=== PATIENT | female | born 1975 | race Caucasian/White ===

== ENCOUNTER 2020-07-11 13:45 | Emergency (ER) | payer MEDICARE ==
[2020-07-11] MEDS ORDERED: Sodium Chloride 0.9% 1000 ML 1,000 ML IV STA ×2 (14:29→15:34)
[2020-07-11] MEDS ORDERED: Zofran 4 MG/2 ML VIAL IV ONE (14:34)
[2020-07-11] MEDS ORDERED: MORPHINE SULFATE 4 MG INJ IV ONE (14:34)
--- NOTE | 2020-07-11 14:34 | ERPHSYRPT ---
- History of Present Illness Historian: patient Exam Limitations: no limitations Patient Subjective Stated Complaint: Pt states that she has arthritis in her knees and back and they are hurting, she is having severe pain in her sides and abdomen, she has felt like she was going to have diarhea 4 different times today but couldn't go, she has been nauseaous today and finally vomited on her way to the hospital Triage Nursing Assessment: Pt was brought to the ER by her dad, vitals wnl, pt moaning, pulses normal, bowel sounds heard in all 4, skin n/w/d, smokes 1 pk/day, rates overall pain as 8/10 Timing/Duration: day(s) (4) Activities at Onset: rest Quality: sharpness, throbbing Abdominal Pain Onset Location: LLQ Pain Radiation: no radiation Severity of Pain-Max: severe Severity of Pain-Current: severe Modifying Factors: Improves With: movement Associated Symptoms: back, diarrhea, nausea Previous symptoms: no prior history Allergies/Adverse Reactions: carbamazepine [From Tegretol] Allergy (Verified 07/11/20 14:10) phenytoin [From Dilantin] Allergy (Verified 07/11/20 14:10) Home Medications: Divalproex Sodium 1,000 mg PO BID 07/11/20 [History] Sertraline HCl 50 mg PO DAILY 07/11/20 [History] Topiramate [Topamax] 200 mg PO BID 07/11/20 [History] Travel Risk - International Travel Have you traveled outside of the country in past 3 weeks: No - Coronavirus Screening Are you exhibiting any of the following symptoms?: No Close contact with a COVID-19 positive Pt in past 14-21 Days: No - Review of Systems Constitutional: Malaise, No Fever, No Chills Eyes: No Symptoms Ears, Nose, & Throat: No Symptoms Respiratory: No Cough, No Dyspnea Cardiac: No Chest Pain, No Edema, No Syncope Abdominal/Gastrointestinal: Abdominal Pain, Nausea, Vomiting, Diarrhea Genitourinary Symptoms: No Dysuria Musculoskeletal: Arthralgias, Back Pain, Joint Pain, No Neck Pain Skin: No Symptoms, No Rash Neurological: No Dizziness, No Focal Weakness, No Sensory Changes Psychological: No Symptoms Endocrine: No Symptoms All Other Systems: Reviewed and Negative - Past Medical History Neurological History: Seizures Psycho-Social History: Depression - Past Surgical History Past Surgical History: Yes Female Surgical History: Section, Tubal Ligation - Social History Smoking Status: Current every day smoker Exposure to second hand smoke: Yes Drug Use: none Patient Lives Alone: No - Female History Hx Now: No (tubal) - Nursing Vital Signs Nursing Vital Signs: Initial Vital Signs Temperature 97.4 F 07/11/20 13:54 Pulse Rate 102 H 07/11/20 13:54 Blood Pressure 134/88 07/11/20 13:54 O2 Sat by Pulse Oximetry 98 07/11/20 13:54 Pain Scale Pain Intensity 8 - Physical Exam General Appearance: moderate distress, alert, obese Eye Exam: PERRL/EOMI, eyes nml inspection Ears, Nose, Throat Exam: normal ENT inspection, pharynx normal, moist mucous membranes Neck Exam: normal inspection, non-tender, supple, full range of motion Respiratory Exam: normal breath sounds, lungs clear, No respiratory distress Cardiovascular Exam: normal heart sounds, tachycardia Gastrointestinal/Abdomen Exam: soft, tenderness (Diffuse), No mass Pelvic Exam: deferred Back Exam: vertebral tenderness, decreased range of motion, muscle spasm, No CVA tenderness Extremity Exam: normal inspection, normal range of motion, pelvis stable Neurologic Exam: alert, oriented x 3, cooperative, nml cerebellar function, sensation nml, depressed mood/affect, No motor deficits Skin Exam: normal color, warm, dry SpO2: 98 - Course Nursing assessment & vital signs reviewed: Yes EKG Interpreted by Me: RATE ([id number]), Sinus Tach Ordered Tests: Active Orders 24 hr Category Date Time Status EKG-ER Only STAT Care 07/11/20 14:29 Active IV Insertion STAT Care 07/11/20 14:29 Active ABDOMEN AND PELVIS W/0 CONTRAS [CT] Stat Exams 07/11/20 15:08 Completed BMP Stat Lab 07/11/20 14:45 Completed CBC W DIFF Stat Lab 07/11/20 14:29 Completed Hepatic Function Panel Stat Lab 07/11/20 14:45 Completed LIPASE Stat Lab 07/11/20 14:45 Completed PROTIME WITH INR Stat Lab 07/11/20 14:45 Completed UA W/RFX UR CULTURE Stat Lab 07/11/20 13:59 Uncollected Medication Summary Generic Name Dose Route Start Last Admin Trade Name Freq PRN Reason Stop Dose Admin Sodium Chloride 1,000 mls @ 999 mls/hr 07/11/20 15:34 Sodium Chloride 0.9% 1000 Ml IV 07/11/20 16:34 .Q1H1M STA Tamsulosin HCl 0.4 mg 07/12/20 10:00 Flomax 0.4 Mg PO 08/11/20 09:59 DAILY PB Discontinued Medications Generic Name Dose Route Start Last Admin Trade Name Panchito PRN Reason Stop Dose Admin Sodium Chloride 1,000 mls @ 999 mls/hr 07/11/20 14:29 07/11/20 14:36 Sodium Chloride 0.9% 1000 Ml IV 07/11/20 15:29 999 mls/hr .Q1H1M STA Administration Sodium Chloride Confirm 07/11/20 14:36 Sodium Chloride 0.9% 1000 Ml Administered 07/11/20 14:37 Dose 1,000 mls @ ud .ROUTE .STK-MED ONE Ketorolac Tromethamine 30 mg 07/11/20 15:33 Toradol 30 Mg Injection IV 07/11/20 15:34 STAT ONE Morphine Sulfate 4 mg 07/11/20 14:34 07/11/20 14:37 Morphine Sulfate 4 Mg Inj IV 07/11/20 14:35 4 mg STAT ONE Administration Morphine Sulfate Confirm 07/11/20 14:35 Morphine Sulfate 4 Mg Inj Administered 07/11/20 14:36 Dose 4 mg .ROUTE .STK-MED ONE Ondansetron HCl 4 mg 07/11/20 14:34 07/11/20 14:37 Zofran 4 Mg/2 Ml Vial IV 07/11/20 14:35 4 mg STAT ONE Administration Ondansetron HCl Confirm 07/11/20 14:35 Zofran 4 Mg/2 Ml Vial Administered 07/11/20 14:36 Dose 4 mg .ROUTE .STK-MED ONE Lab/Rad Data: Laboratory Result Diagrams 07/11/20 14:29 07/11/20 14:45 Laboratory Results 07/11/20 07/11/20 07/11/20 Range/Units 14:45 14:45 14:29 WBC 4.5 (4.0-10.5) K/mm3 RBC 4.23 (4.1-5.4) M/mm3 Hgb 14.2 (12.0-16.0) gm/dl Hct 43.6 (35-47) % MCV 103.1 H (78-100) fl MCH 33.6 H (26-32) pg MCHC 32.6 (32-36) g/dl RDW 13.0 (11.5-14.0) % Plt Count 127 L (150-450) K/mm3 MPV 10.8 (7.5-11.0) fl Gran % 89.2 H (36.0-66.0) % Eos # (Auto) 0.03 (0-0.5) Absolute Lymphs (auto) 0.39 L (1.0-4.6) Absolute Monos (auto) 0.06 (0.0-1.3) Lymphocytes % 8.6 L (24.0-44.0) % Monocytes % 1.3 (0.0-12.0) % Eosinophils % 0.7 (0.00-5.0) % Basophils % 0.2 (0.0-0.4) % Absolute Granulocytes 4.02 (1.4-6.9) Basophils # 0.01 (0-0.4) PT 11.8 (9.95-12.35) SECONDS INR 1.04 (0.8-3.0) Sodium 137 (137-145) mmol/L Potassium 4.5 (3.5-5.1) mmol/L Chloride 109 H (98-107) mmol/L Carbon Dioxide 22 (22-30) mmol/L Anion Gap 11.0 (5-15) MEQ/L BUN 16 (7-17) mg/dL Creatinine 0.83 (0.52-1.04) mg/dL Estimated GFR > 60.0 ML/MIN Glucose 113 H (74-106) mg/dL Calcium 9.2 (8.4-10.2) mg/dL Total Bilirubin 0.30 (0.2-1.3) mg/dL Direct Bilirubin 0.1 (0.0-0.4) mg/dL AST 27 (14-36) U/L ALT 10 (0-35) U/L Alkaline Phosphatase 62 (38-126) U/L Serum Total Protein 7.3 (6.3-8.2) g/dL Albumin 3.7 (3.5-5.0) g/dL Lipase 62 (23-300) U/L - Progress Progress: improved Progress Note: 07/11/20 15:49 abd pain work up. Labs fairly unremarkable. CT shows 5-6mm ureteral stone about 3cm proximal to UVJ. Toradol, IVF, flomax. Transfer center connected me to ER MD for ER to ER transfer. Pt accepted for transfer to ER by Dr. Naranjo. Counseled pt/family regarding: lab results, diagnosis, rad results - Departure Departure Disposition: Transfer Clinical Impression: Ureteral stone with hydronephrosis Condition: Stable Critical Care Time: No Referrals: RODGER VALLADARES [Primary Care Provider] -
[2020-07-11] MEDS ORDERED: MORPHINE SULFATE 4 MG INJ ONE (14:35)
[2020-07-11] MEDS ORDERED: Zofran 4 MG/2 ML VIAL ONE (14:35)
[2020-07-11] MEDS ORDERED: Sodium Chloride 0.9% 1000 ML 1,000 ML ONE ×2 (14:36→15:48)
[2020-07-11 14:54] LABS: Absolute Neutrophil Ct (ANC) 4.02 (1.4-6.9); BASOPHIL % 0.2 % (0.0-0.4); Basophil (Absolute #) 0.01 (0-0.4); Eosinophil % 0.7 % (0.00-5.0); Eosinophil (Absolute #) 0.03 (0-0.5); Hematocrit 43.6 % (35-47); Hemoglobin 14.2 gm/dl (12.0-16.0); Lymphocyte (Absolute #) 0.39 (1.0-4.6); Lymphocytes % 8.6 % (24.0-44.0); Mean Cell Volume 103.1 fl (78-100); Mean Corpuscular Hemoglobin 33.6 pg (26-32); Mean Corpuscular Hgb Concent. 32.6 g/dl (32-36); Mean Platelet Volume 10.8 fl (7.5-11.0); Monocyte (Absolute #) 0.06 (0.0-1.3); Monocytes % 1.3 % (0.0-12.0); Neutrophil % 89.2 % (36.0-66.0); Platelet Count 127 K/mm3 (150-450); Red Blood Count 4.23 M/mm3 (4.1-5.4); White Blood Count 4.5 K/mm3 (4.0-10.5)
[2020-07-11 15:02] LABS: INR 1.04 (0.8-3.0); PROTIME 11.8 SECONDS (9.95-12.35)
[2020-07-11 15:06] LABS: ALBUMIN 3.7 g/dL (3.5-5.0); ALKALINE PHOSPHATASE 62 U/L (38-126); BLOOD UREA NITROGEN 16 mg/dL (7-17); CHLORIDE 109 mmol/L (98-107); Calcium 9.2 mg/dL (8.4-10.2); Carbon Dioxide 22 mmol/L (22-30); Creatinine 1 0.83 mg/dL (0.52-1.04); Direct Bilirubin 0.1 mg/dL (0.0-0.4); EST GLOMERULAR FILTRATION RATE > 60.0 ML/MIN; Glucose 113 mg/dL (74-106); LIPASE 62 U/L (23-300); Potassium 4.5 mmol/L (3.5-5.1); SGOT/AST 27 U/L (14-36); SGPT/ALT 10 U/L (0-35); SODIUM 137 mmol/L (137-145); Total Protein 7.3 g/dL (6.3-8.2)
[2020-07-11 15:15] VITALS: PULSE 104
--- NOTE | 2020-07-11 15:27 | XRAY ---
Indication: Abdomen pain, nausea, and diarrhea. Multiple contiguous axial images obtained through the abdomen and pelvis without contrast as ordered. Comparison: None Lung bases demonstrates 1 cm posterior right lower lobe noncalcified nodule. No infiltrate or effusion. Heart is not enlarged. Small hiatal hernia. Noncontrasted stomach and bowel loops appear nonobstructed. Normal air-filled appendix. Previous cholecystectomy. Spleen is enlarged measuring 12.6 cm. There is a 5-6 mm distal left ureter calculus approximately 3 cm proximal to the UVJ. Proximal left ureter is prominent up to 9 mm along with moderate hydronephrosis, renal edema, and perinephric stranding consistent with high-grade obstructive uropathy. Additional multiple bilateral renal punctate calculi, largest right lower pole measuring 3 mm. Remaining liver, pancreas, spleen, adrenal glands, urinary bladder, uterus, and aorta appear unremarkable for noncontrast exam. Osseous structures intact with mild/moderate L4-S1 degenerative disc disease and old right 11/12 rib fractures. Impression: 1. 5-6 mm distal left ureter calculus producing high-grade obstruction as detailed. Additional bilateral renal micro-calculi. 2. Incidental splenomegaly and small hiatal hernia. 3. 1 cm right lower lobe noncalcified pulmonary nodule. Finding is possibly granulomatous in this demographic. Outside comparison studies are recommended if available. If not, CT chest recommended for baseline with follow-up per Fleischner guidelines.
[2020-07-11] MEDS ORDERED: TORAdol 30 mg Injection IV ONE (15:33)
[2020-07-11] MEDS ORDERED: TORAdol 30 mg Injection ONE (15:48)
[2020-07-11] MEDS ORDERED: Flomax 0.4 MG ONE (15:48)
[2020-07-11 16:10] VITALS: BP 94/58; O2SAT 93
[2020-07-12] MEDS ORDERED: Flomax 0.4 MG PO SCH (10:00)
== END 2020-07-11 16:43 | disposition short-term general hospital (02) ==
LOC: ED 13:45
DX: N13.2 Hydronephrosis with renal and ureteral calculous obstruction (principal)
CPT/HCPCS: 36000; 36415; 74176; 80048; 80076; 83690; 85025; 85610; 93005; 96360; 96374; 96375; 99285; J1885; J2270; J2405; A9270-GY

== ENCOUNTER 2021-10-11 19:35 | Emergency (ER) | payer MEDICARE ==
[2021-10-11] MEDS ORDERED: Zofran 4 MG/2 ML VIAL ONE (20:13)
[2021-10-11] MEDS ORDERED: MORPHINE SULFATE 4 MG INJ ONE (20:13)
[2021-10-11] MEDS ORDERED: Sodium Chloride 0.9% 1000 ML 1,000 ML ONE (20:13)
[2021-10-11] MEDS: Sodium Chloride 0.9% 1000 ML 1,000 ML IV STA (20:14)
[2021-10-11] MEDS: MORPHINE SULFATE 4 MG INJ IV ONE (20:15)
[2021-10-11] MEDS: Zofran 4 MG/2 ML VIAL IV ONE (20:15)
[2021-10-11 20:26] LABS: Absolute Neutrophil Ct (ANC) 4.02 (1.4-6.9); BASOPHIL % 0.2 % (0.0-0.4); Basophil (Absolute #) 0.01 (0-0.4); Eosinophil % 1.3 % (0.00-5.0); Eosinophil (Absolute #) 0.07 (0-0.5); Hematocrit 37.5 % (35-47); Hemoglobin 11.8 gm/dl (12.0-16.0); Lymphocyte (Absolute #) 1.02 (1.0-4.6); Lymphocytes % 18.3 % (24.0-44.0); Mean Corpuscular Hemoglobin 31.5 pg (26-32); Mean Corpuscular Hgb Concent. 31.5 g/dl (32-36); Mean Platelet Volume 10.7 fl (7.5-11.0); Monocyte (Absolute #) 0.46 (0.0-1.3); Monocytes % 8.2 % (0.0-12.0); Platelet Count 152 K/mm3 (150-450); Red Blood Count 3.75 M/mm3 (4.1-5.4); Red Cell Distribution Width 14.5 % (11.5-14.0); White Blood Count 5.6 K/mm3 (4.0-10.5)
[2021-10-11 20:37] LABS: Appearance CLOUDY (CLEAR); Bacteria MODERATE /HPF (NEGATIVE); Bilirubin NEGATIVE (NEGATIVE); Blood SMALL Ery/ul (0-5); Epithelial Cells RARE /HPF (FEW); Glucose NEGATIVE (NEGATIVE); Ketones TRACE (NEGATIVE); Leukocyte Esterase LARGE (NEGATIVE); Nitrite POSITIVE (NEGATIVE); Protein,Urine Dip 100 (Negative); Specific Gravity 1.018 (1.005-1.025); Urobilinogen NEGATIVE mg/dL (0-1); WBC >100 /HPF (0-5)
[2021-10-11 20:40] LABS: ALBUMIN 3.5 g/dL (3.5-5.0); ALKALINE PHOSPHATASE 71 U/L (38-126); ANION GAP 10.5 MEQ/L (5-15); BLOOD UREA NITROGEN 13 mg/dL (7-17); CHLORIDE 106 mmol/L (98-107); Calcium 8.9 mg/dL (8.4-10.2); Carbon Dioxide 22 mmol/L (22-30); Creatinine 1 0.84 mg/dL (0.52-1.04); EST GLOMERULAR FILTRATION RATE > 60.0 ML/MIN; Glucose 127 mg/dL (74-106); LIPASE 66 U/L (23-300); Potassium 4.1 mmol/L (3.5-5.1); SGOT/AST 13 U/L (14-36); SGPT/ALT 8 U/L (0-35); SODIUM 134 mmol/L (137-145); Total Protein 6.7 g/dL (6.3-8.2)
--- NOTE | 2021-10-11 21:00 | ERPHSYRPT ---
- History of Present Illness Time Seen by Provider: 10/11/21 20:00 Historian: patient Exam Limitations: no limitations Patient Subjective Stated Complaint: pt states "I was laying on the couch and my stomach began to hurt." Triage Nursing Assessment: pt came into the er via ambulance; pt is axo x3; c/o abd pain; pt states 9/10 to abd; pt states last BM today; abd is obese, round, nontender; hyperactive bowel sounds in all quads; pt denies N/V/D; urine yellow, cloudy, foul ordor; hypertension Physician History: Patient is a 46-year-old female presents to our ED via EMS for evaluation of abdominal pain. Patient states pain started just prior to arrival. Patient was laying on the couch relaxing when the pain started. Pain described as an ache that is located at bilateral flanks and into the midline area. No radiation per se. Pain reproduced with movement and palpation. Pain improved with rest. Patient currently rates her pain at 9 out of 10. Patient denies nausea vomiting. Patient had a normal bowel movement today. No diarrhea. However patient does state that her urine appears cloudy. Patient states her urine has a foul smell. Symptoms are mild to moderate in intensity. No specific worsening improving factors. Patient voices no other complaints concerns at this time. Timing/Duration: today Activities at Onset: none Quality: aching Abdominal Pain Onset Location: generalized abdomen Pain Radiation: no radiation Severity of Pain-Max: moderate Severity of Pain-Current: mild Modifying Factors: Improves With: nothing Associated Symptoms: denies symptoms Previous symptoms: no prior history Allergies/Adverse Reactions: carbamazepine [From Tegretol] Allergy (Verified 07/11/20 14:10) phenytoin [From Dilantin] Allergy (Verified 07/11/20 14:10) Home Medications: Divalproex Sodium 1,000 mg PO BID 07/11/20 [History] Sertraline HCl 50 mg PO DAILY 07/11/20 [History] Topiramate [Topamax] 200 mg PO BID 07/11/20 [History] Hx Tetanus, Diphtheria Vaccination/Date Given: No Hx Influenza Vaccination/Date Given: No Hx Pneumococcal Vaccination/Date Given: No Immunizations Up to Date: No Travel Risk - International Travel Have you traveled outside of the country in past 3 weeks: No - Coronavirus Screening Are you exhibiting any of the following symptoms?: No Close contact with a COVID-19 positive Pt in past 14-21 Days: No - Vaccine Status Have you recieved a Covid-19 vaccination: Yes [employer]: [employer] - Vaccination Dates Date of 2cond Vaccination (if applicable): unknown - Review of Systems Constitutional: No Symptoms, No Fever, No Chills Eyes: No Symptoms Ears, Nose, & Throat: No Symptoms Respiratory: No Symptoms, No Cough, No Dyspnea Cardiac: No Symptoms, No Chest Pain, No Edema, No Syncope Abdominal/Gastrointestinal: No Symptoms, No Abdominal Pain, No Nausea, No Vomiting, No Diarrhea Genitourinary Symptoms: No Symptoms, No Dysuria Musculoskeletal: No Symptoms, No Back Pain, No Neck Pain Skin: No Symptoms, No Rash Neurological: No Symptoms, No Dizziness, No Focal Weakness, No Sensory Changes Psychological: No Symptoms Endocrine: No Symptoms Hematologic/Lymphatic: No Symptoms Immunological/Allergic: No Symptoms All Other Systems: Reviewed and Negative - Past Medical History Pertinent Past Medical History: Yes Neurological History: Seizures Musculoskeletal History: Arthritis Psycho-Social History: Bipolar, Depression - Past Surgical History Past Surgical History: Yes Female Surgical History: Section, Tubal Ligation Other Surgical History: c-sections x3 - Social History Smoking Status: Current every day smoker Exposure to second hand smoke: Yes Drug Use: none Patient Lives Alone: No - Female History Hx Now: Yes - Nursing Vital Signs Nursing Vital Signs: Initial Vital Signs Temperature 97.5 F 10/11/21 19:45 Pulse Rate 86 10/11/21 19:45 Respiratory Rate 18 10/11/21 19:45 Blood Pressure 157/91 10/11/21 19:45 O2 Sat by Pulse Oximetry 96 10/11/21 19:45 Pain Scale Pain Intensity 3 - Physical Exam General Appearance: no apparent distress, alert Eye Exam: PERRL/EOMI, eyes nml inspection Ears, Nose, Throat Exam: normal ENT inspection, TMs normal, pharynx normal, moist mucous membranes Neck Exam: normal inspection, non-tender, supple, full range of motion Respiratory Exam: normal breath sounds, lungs clear, airway intact, No respiratory distress Cardiovascular Exam: regular rate/rhythm, normal heart sounds, normal peripheral pulses Gastrointestinal/Abdomen Exam: soft, normal bowel sounds, other (Mild generalized abdominal tenderness. Pain is undifferentiated), No tenderness, No mass Back Exam: normal inspection, normal range of motion, No CVA tenderness, No vertebral tenderness Extremity Exam: normal inspection, normal range of motion, pelvis stable Neurologic Exam: alert, oriented x 3, cooperative, normal mood/affect, nml cerebellar function, sensation nml, No motor deficits Skin Exam: normal color, warm, dry Lymphatic Exam: No adenopathy SpO2 Interpretation: normal SpO2: 96 O2 Delivery: Room Air - Course Nursing assessment & vital signs reviewed: Yes - CT Exams Abdomen/Pelvis CT Interpretation: Tele-radiologist Report (07/11/2020 new 2 to 3 mm left UPJ calculus producing mild hydronephrosis. Again additional bilateral renal microcalculi.) Ordered Tests: Active Orders 24 hr Category Date Time Status IV Insertion STAT Care 10/11/21 19:47 Active ABDOMEN AND PELVIS W CONTRAST [CT] Stat Exams 10/11/21 19:48 Taken CBC W DIFF Stat Lab 10/11/21 20:15 Completed CMP Stat Lab 10/11/21 20:15 Completed CULTURE,URINE Stat Lab 10/11/21 19:55 Received HCG,QUALITATIVE URINE Stat Lab 10/11/21 19:55 Completed LIPASE Stat Lab 10/11/21 20:15 Completed TROPONIN Q3H Lab 10/11/21 20:15 Completed TROPONIN Q3H Lab 10/11/21 23:00 Ordered TROPONIN Q3H Lab 10/12/21 02:00 Ordered TROPONIN Q3H Lab 10/12/21 05:00 Ordered TROPONIN Q3H Lab 10/12/21 08:00 Ordered UA W/RFX UR CULTURE Stat Lab 10/11/21 19:55 Completed Medication Summary Generic Name Dose Route Start Last Admin Trade Name Freq PRN Reason Stop Dose Admin Ceftriaxone Sodium/Dextrose 1 g in 50 mls @ 100 mls/hr 10/11/21 22:21 Rocephin 1 Gm-D5w 50 Ml Bag IV 10/11/21 22:50 STAT STA Discontinued Medications Generic Name Dose Route Start Last Admin Trade Name Freq PRN Reason Stop Dose Admin Sodium Chloride 1,000 mls @ 999 mls/hr 10/11/21 19:47 10/11/21 21:31 Sodium Chloride 0.9% 1000 Ml IV 10/11/21 20:47 Infused .Q1H1M STA Infusion Sodium Chloride Confirm 10/11/21 20:13 Sodium Chloride 0.9% 1000 Ml Administered 10/11/21 20:14 Dose 1,000 mls @ ud .ROUTE .STK-MED ONE Morphine Sulfate 4 mg 10/11/21 19:47 10/11/21 20:15 Morphine Sulfate 4 Mg/Ml Injection IV 10/11/21 19:48 4 mg STAT ONE Administration Morphine Sulfate Confirm 10/11/21 20:13 Morphine Sulfate 4 Mg/Ml Injection Administered 10/11/21 20:14 Dose 4 mg .ROUTE .STK-MED ONE Ondansetron HCl 4 mg 10/11/21 19:47 10/11/21 20:15 Ondansetron Hcl 4 Mg/2 Ml Vial IV 10/11/21 19:48 4 mg STAT ONE Administration Ondansetron HCl Confirm 10/11/21 20:13 Ondansetron Hcl 4 Mg/2 Ml Vial Administered 10/11/21 20:14 Dose 4 mg .ROUTE .STK-MED ONE Lab/Rad Data: Laboratory Result Diagrams 10/11/21 20:15 10/11/21 20:15 Laboratory Results 10/11/21 10/11/21 10/11/21 Range/Units 20:15 20:15 20:15 WBC 5.6 (4.0-10.5) K/mm3 RBC 3.75 L (4.1-5.4) M/mm3 Hgb 11.8 L (12.0-16.0) gm/dl Hct 37.5 (35-47) % MCV 100.0 (78-100) fl MCH 31.5 (26-32) pg MCHC 31.5 L (32-36) g/dl RDW 14.5 H (11.5-14.0) % Plt Count 152 (150-450) K/mm3 MPV 10.7 (7.5-11.0) fl Gran % 72.0 H (36.0-66.0) % Eos # (Auto) 0.07 (0-0.5) Absolute Lymphs (auto) 1.02 (1.0-4.6) Absolute Monos (auto) 0.46 (0.0-1.3) Lymphocytes % 18.3 L (24.0-44.0) % Monocytes % 8.2 (0.0-12.0) % Eosinophils % 1.3 (0.00-5.0) % Basophils % 0.2 (0.0-0.4) % Absolute Granulocytes 4.02 (1.4-6.9) Basophils # 0.01 (0-0.4) Sodium 134 L (137-145) mmol/L Potassium 4.1 (3.5-5.1) mmol/L Chloride 106 (98-107) mmol/L Carbon Dioxide 22 (22-30) mmol/L Anion Gap 10.5 (5-15) MEQ/L BUN 13 (7-17) mg/dL Creatinine 0.84 (0.52-1.04) mg/dL Estimated GFR > 60.0 ML/MIN Glucose 127 H (74-106) mg/dL Calcium 8.9 (8.4-10.2) mg/dL Total Bilirubin 0.20 (0.2-1.3) mg/dL AST 13 L (14-36) U/L ALT 8 (0-35) U/L Alkaline Phosphatase 71 (38-126) U/L Troponin I < 0.012 (0.000-0.034) ng/mL Serum Total Protein 6.7 (6.3-8.2) g/dL Albumin 3.5 (3.5-5.0) g/dL Lipase 66 (23-300) U/L Urine Color (YELLOW) Urine Appearance (CLEAR) Urine pH (5-6) Ur Specific [place] (1.005-1.025) Urine Protein (Negative) Urine Ketones (NEGATIVE) Urine Blood (0-5) David/ul Urine Nitrite (NEGATIVE) Urine Bilirubin (NEGATIVE) Urine Urobilinogen (0-1) mg/dL Ur Leukocyte Esterase (NEGATIVE) Urine WBC (Auto) (0-5) /HPF Urine RBC (Auto) (0-2) /HPF U Epithel Cells (Auto) (FEW) /HPF Urine Bacteria (Auto) (NEGATIVE) /HPF Urine Culture Reflexed (NO) Urine Glucose (NEGATIVE) mg/dL Urine HCG, Qual (Negative) 10/11/21 10/11/21 Range/Units 19:55 19:55 WBC (4.0-10.5) K/mm3 RBC (4.1-5.4) M/mm3 Hgb (12.0-16.0) gm/dl Hct (35-47) % MCV (78-100) fl MCH (26-32) pg MCHC (32-36) g/dl RDW (11.5-14.0) % Plt Count (150-450) K/mm3 MPV (7.5-11.0) fl Gran % (36.0-66.0) % Eos # (Auto) (0-0.5) Absolute Lymphs (auto) (1.0-4.6) Absolute Monos (auto) (0.0-1.3) Lymphocytes % (24.0-44.0) % Monocytes % (0.0-12.0) % Eosinophils % (0.00-5.0) % Basophils % (0.0-0.4) % Absolute Granulocytes (1.4-6.9) Basophils # (0-0.4) Sodium (137-145) mmol/L Potassium (3.5-5.1) mmol/L Chloride (98-107) mmol/L Carbon Dioxide (22-30) mmol/L Anion Gap (5-15) MEQ/L BUN (7-17) mg/dL Creatinine (0.52-1.04) mg/dL Estimated GFR ML/MIN Glucose (74-106) mg/dL Calcium (8.4-10.2) mg/dL Total Bilirubin (0.2-1.3) mg/dL AST (14-36) U/L ALT (0-35) U/L Alkaline Phosphatase (38-126) U/L Troponin I (0.000-0.034) ng/mL Serum Total Protein (6.3-8.2) g/dL Albumin (3.5-5.0) g/dL Lipase (23-300) U/L Urine Color IESHA (YELLOW) Urine Appearance CLOUDY (CLEAR) Urine pH 6.0 (5-6) Ur Specific [place] 1.018 (1.005-1.025) Urine Protein 100 (Negative) Urine Ketones TRACE (NEGATIVE) Urine Blood SMALL (0-5) David/ul Urine Nitrite POSITIVE (NEGATIVE) Urine Bilirubin NEGATIVE (NEGATIVE) Urine Urobilinogen NEGATIVE (0-1) mg/dL Ur Leukocyte Esterase LARGE (NEGATIVE) Urine WBC (Auto) >100 (0-5) /HPF Urine RBC (Auto) 16-25 (0-2) /HPF U Epithel Cells (Auto) RARE (FEW) /HPF Urine Bacteria (Auto) MODERATE (NEGATIVE) /HPF Urine Culture Reflexed YES (NO) Urine Glucose NEGATIVE (NEGATIVE) mg/dL Urine HCG, Qual NEGATIVE (Negative) - Progress Progress: improved Progress Note: Case discussed with Dr. Camarena of urology who feels patient may be discharged home. Patient will receive a dose of Rocephin in our ED. A prescription for Keflex will be provided. Patient agrees to follow-up with Dr. Camarena within 48 hours for evaluation. Patient states her pain has resolved. BUN/creatinine are normal. 10/11/21 22:28 Portions of this note were created with voice recognition technology. There may be grammatical, spelling, punctuation or sound alike errors 10/11/21 22:35 Patient received a prescription for Toradol, Keflex. Prescription for Flomax was forwarded to patient's pharmacy. 10/11/21 22:[address] Other (Case discussed with Dr. Camarena of urology who will see patient on an outpatient basis within 1 week's time.) Will see patient in: office Counseled pt/family regarding: lab results, diagnosis, need for follow-up, rad results - Departure Departure Disposition: Home Clinical Impression: Nephrolithiasis, Hydronephrosis, Ureterolithiasis, Renal colic on left side, Urinary tract infection Condition: Stable Critical Care Time: No Referrals: RODGER VALLADARES [Primary Care Provider] - Follow up/PCP as directed HIRO CAMARENA DO [NON-STAFF PHY W/O PRIVILEGES] - Follow up/PCP as directed Additional Instructions: Discharge/Care Plan MARLINRUFUS ABDI was seen on 10/11/21 in the Emergency Room. The patient was counseled regarding Diagnosis,Lab results, Imaging studies, need for follow up and when to return to the Emergency Room. Prescriptions given: Discharge Note I have spoken with the patient and/or caregivers. I have explained the patient's condition, diagnosis and treatment plan based on the information available to me at this time. I have answered the patient's and/or caregiver's questions and addressed any concerns. The patient and/or caregivers have as good understanding of the patient's diagnosis, condition and treatment plan as can be expected at this point. The vital signs have been stable. The patient's condition is stable and appropriate for discharge from the emergency department. The patient will pursue further outpatient evaluation with the primary care ph ysician or other designated or consulting physician as outlined in the discharge instructions. The patient and/or caregivers are agreeable to this plan of care and follow-up instructions have been explained in detail. The patient and/or caregivers have received these instruction. The patient/and or caregivers are aware that any significant change in condition or worsening of symptoms should prompt an immediate return to this or the closest emergency department or call 911. Prescriptions: Tamsulosin HCl 0.4 mg [Flomax 0.4 MG] 0.4 mg PO DAILY 14 Days #14 cap
[2021-10-11] MEDS ORDERED: ROCEPHIN 1 Gm-D5w 50 ml Bag** 1 G/50 ML IVPB IV ONE (22:31)
[2021-10-11] MEDS: ROCEPHIN 1 Gm-D5w 50 ml Bag** 1 G/50 ML IVPB IV STA (22:33)
[2021-10-11 22:35] VITALS: BP 98/68; PULSE 66; O2SAT 96
--- NOTE | 2021-10-12 08:55 | XRAY ---
Indication: Abdomen pain. Multiple contiguous axial images obtained through the abdomen and pelvis using 80 cc Isovue 370 contrast. Comparison: July 11, 2020. Lung bases demonstrate stable 1 cm posterior right lower lobe noncalcified nodule favored to be benign given stability. New bibasilar dependent atelectasis. No infiltrate or effusion. Heart not enlarged. Noncontrasted stomach and bowel loops appear nonobstructed with normal appendix. Stable cholecystectomy clips. No free fluid/air. Again multiple bilateral renal micro-calculi. New 2-3 mm left UPJ calculus with mild hydronephrosis. Remaining liver, pancreas, spleen, adrenal glands, kidneys, ureters, bladder, uterus, and aorta appear unremarkable. No pathologic retroperitoneal lymphadenopathy. Osseous structures intact again with mild degenerative changes throughout the thoracolumbar spine and old right 11/12 rib fractures. Impression: 1. Again bilateral renal micro-calculi with new 2-3 mm left UPJ calculus producing obstructive uropathy as detailed. 2. Stable probable benign right lower lobe noncalcified nodule and chronic bony findings.
== END 2021-10-11 23:09 | disposition home or self-care (01) ==
LOC: ED 19:35
DX: N13.6 Pyonephrosis (principal); N39.0 Urinary tract infection, site not specified
CPT/HCPCS: 36000; 36415; 74177; 80053; 81001; 83690; 84484; 84703; 85025; 87086; 96360; 96374; 96375; 99284; J0696; J2270; J2405

== ENCOUNTER 2022-01-20 03:36 | Emergency (ER) | payer MEDICARE ==
[2022-01-20] MEDS ORDERED: Sodium Chloride 0.9% 1000 ML 1,000 ML IV STA (04:01)
[2022-01-20] MEDS ORDERED: Zofran 4 MG/2 ML VIAL IV ONE (04:01)
[2022-01-20] MEDS ORDERED: Zofran 4 MG/2 ML VIAL ONE (04:04)
[2022-01-20] MEDS ORDERED: TORAdol 30 mg Injection ONE (04:04)
[2022-01-20] MEDS ORDERED: Sodium Chloride 0.9% 1000 ML 1,000 ML ONE (04:05)
[2022-01-20] MEDS ORDERED: TORAdol 30 mg Injection IV ONE (04:06)
[2022-01-20] MEDS ORDERED: SUBLIMAZE 100 MCG/2 ML IV ONE (04:09)
--- NOTE | 2022-01-20 04:13 | ERPHSYRPT ---
- History of Present Illness Time Seen by Provider: 01/20/22 04:10 Historian: patient Exam Limitations: no limitations Patient Subjective Stated Complaint: Left sided flank/abdominal pain Triage Nursing Assessment: Patient brought into ED via EMS and transferred self to bed. Patient A+O X3. Patient's skin pink, warm and dry. Patient complains of left sided flank/abdominal pain constant sharp pain 10/10 that started 30 min prior to arrival. Patient denies N/V, but states she did have diarrhea a few days ago. Abdomen soft and round with BS X 4. abdomen soft and round with BS X 4. Physician History: Patient complains of left sided flank/abdominal pain constant sharp pain 10/10 that started 30 min prior to arrival. Patient denies N/V, but states she did have diarrhea a few days ago. Hx of renal stones in past. Sees DR Grady (urology) Timing/Duration: today Activities at Onset: none Quality: cramping Abdominal Pain Onset Location: LLQ, flank Pain Radiation: LLQ Severity of Pain-Max: severe Severity of Pain-Current: severe Modifying Factors: Improves With: nothing Associated Symptoms: denies symptoms Previous symptoms: same symptoms as today Body Map: 1 - pain 2 - radiation of pain Allergies/Adverse Reactions: carbamazepine [From Tegretol] Allergy (Verified 01/20/22 03:47) phenytoin [From Dilantin] Allergy (Verified 01/20/22 03:47) Home Medications: Divalproex Sodium 1,000 mg PO BID 07/11/20 [History] Sertraline HCl 50 mg PO DAILY 07/11/20 [History] Topiramate [Topamax] 200 mg PO BID 07/11/20 [History] Hx Tetanus, Diphtheria Vaccination/Date Given: No Hx Influenza Vaccination/Date Given: No Hx Pneumococcal Vaccination/Date Given: No Immunizations Up to Date: Yes Travel Risk - International Travel Have you traveled outside of the country in past 3 weeks: No - Coronavirus Screening Are you exhibiting any of the following symptoms?: No Close contact with a COVID-19 positive Pt in past 14-21 Days: No - Vaccine Status Have you recieved a Covid-19 vaccination: Yes [employer]ume Se[employer]: [employer] - Vaccination Dates Date of 2cond Vaccination (if applicable): unknown - Review of Systems Constitutional: No Fever, No Chills Eyes: No Symptoms Ears, Nose, & Throat: No Symptoms Respiratory: No Cough, No Dyspnea Cardiac: No Chest Pain, No Edema, No Syncope Abdominal/Gastrointestinal: Abdominal Pain, No Nausea, No Vomiting, No Diarrhea Genitourinary Symptoms: No Dysuria Musculoskeletal: No Back Pain, No Neck Pain Skin: No Rash Neurological: No Dizziness, No Focal Weakness, No Sensory Changes Psychological: No Symptoms Endocrine: No Symptoms All Other Systems: Reviewed and Negative - Past Medical History Pertinent Past Medical History: Yes Neurological History: Seizures Musculoskeletal History: Arthritis Psycho-Social History: Bipolar, Depression - Past Surgical History Past Surgical History: Yes Female Surgical History: Section, Tubal Ligation Other Surgical History: c-sections x3 - Social History Smoking Status: Current every day smoker How long have you smoked: years Exposure to second hand smoke: No Drug Use: none Patient Lives Alone: No - Female History Hx Last Menstrual Period: last month Hx Now: No - Nursing Vital Signs Nursing Vital Signs: Initial Vital Signs Temperature 97.3 F 01/20/22 03:47 Pulse Rate 84 01/20/22 03:47 Respiratory Rate 18 01/20/22 03:47 Blood Pressure 139/93 01/20/22 03:47 O2 Sat by Pulse Oximetry 96 01/20/22 03:47 Pain Scale Pain Intensity 0 - Physical Exam General Appearance: no apparent distress, alert Eye Exam: PERRL/EOMI, eyes nml inspection Ears, Nose, Throat Exam: normal ENT inspection, pharynx normal, moist mucous membranes Neck Exam: normal inspection, non-tender, supple, full range of motion Respiratory Exam: normal breath sounds, lungs clear, No respiratory distress Cardiovascular Exam: regular rate/rhythm, normal heart sounds Gastrointestinal/Abdomen Exam: soft, tenderness (LLQ), No mass Back Exam: normal inspection, normal range of motion, No CVA tenderness, No vertebral tenderness Extremity Exam: normal inspection, normal range of motion, pelvis stable Neurologic Exam: alert, oriented x 3, cooperative, normal mood/affect, nml cerebellar function, sensation nml, No motor deficits Skin Exam: normal color, warm, dry SpO2: 96 - Course Nursing assessment & vital signs reviewed: Yes - CT Exams Abdomen/Pelvis CT Interpretation: Tele-radiologist Report (left distal ureter stone 7x3 mm in size) Ordered Tests: Active Orders 24 hr Category Date Time Status ABDOMEN AND PELVIS W/0 CONTRAS [CT] Stat Exams 01/20/22 04:09 Taken AMYLASE Stat Lab 01/20/22 04:38 Completed CBC W DIFF Stat Lab 01/20/22 04:06 Completed CMP Stat Lab 01/20/22 04:38 Completed CULTURE,URINE Stat Lab 01/20/22 04:06 Received HCG,QUALITATIVE URINE Stat Lab 01/20/22 04:06 Completed LIPASE Stat Lab 01/20/22 04:38 Completed Lactic Acid Stat Lab 01/20/22 04:34 Completed Medication Summary Discontinued Medications Generic Name Dose Route Start Last Admin Trade Name Freq PRN Reason Stop Dose Admin Fentanyl Citrate 50 mcg 01/20/22 04:09 01/20/22 04:23 Fentanyl Citrate 100 Mcg/2 Ml* Vial IV 01/20/22 04:10 50 mcg STAT ONE Administration Fentanyl Citrate Confirm 01/20/22 04:15 Fentanyl Citrate 100 Mcg/2 Ml* Vial Administered 01/20/22 04:16 Dose 100 mcg .ROUTE .STK-MED ONE Sodium Chloride 1,000 mls @ 999 mls/hr 01/20/22 04:01 01/20/22 05:25 Sodium Chloride 0.9% 1000 Ml IV 01/20/22 05:01 Infused .Q1H1M STA Infusion Sodium Chloride Confirm 01/20/22 04:05 Sodium Chloride 0.9% 1000 Ml Administered 01/20/22 04:06 Dose 1,000 mls @ ud .ROUTE .STK-MED ONE Ketorolac Tromethamine 30 mg 01/20/22 04:06 01/20/22 04:07 Ketorolac Tromethamine 30 Mg/Ml Inj IV 01/20/22 04:07 30 mg STAT ONE Administration Ketorolac Tromethamine Confirm 01/20/22 04:04 Ketorolac Tromethamine 30 Mg/Ml Inj Administered 01/20/22 04:05 Dose 30 mg .ROUTE .STK-MED ONE Ondansetron HCl 4 mg 01/20/22 04:01 01/20/22 04:07 Ondansetron Hcl 4 Mg/2 Ml Vial IV 01/20/22 04:02 4 mg STAT ONE Administration Ondansetron HCl Confirm 01/20/22 04:04 Ondansetron Hcl 4 Mg/2 Ml Vial Administered 01/20/22 04:05 Dose 4 mg .ROUTE .STK-MED ONE Lab/Rad Data: Laboratory Result Diagrams 01/20/22 04:06 01/20/22 04:38 Laboratory Results 01/20/22 01/20/22 01/20/22 Range/Units 04:38 04:34 04:06 WBC (4.0-10.5) K/mm3 RBC (4.1-5.4) M/mm3 Hgb (12.0-16.0) gm/dl Hct (35-47) % MCV (78-100) fl MCH (26-32) pg MCHC (32-36) g/dl RDW (11.5-14.0) % Plt Count (150-450) K/mm3 MPV (7.5-11.0) fl Gran % (36.0-66.0) % Eos # (Auto) (0-0.5) Absolute Lymphs (auto) (1.0-4.6) Absolute Monos (auto) (0.0-1.3) Lymphocytes % (24.0-44.0) % Monocytes % (0.0-12.0) % Eosinophils % (0.00-5.0) % Basophils % (0.0-0.4) % Absolute Granulocytes (1.4-6.9) Basophils # (0-0.4) Sodium 137 (137-145) mmol/L Potassium 4.1 (3.5-5.1) mmol/L Chloride 110 H (98-107) mmol/L Carbon Dioxide 22 (22-30) mmol/L Anion Gap 9.9 (5-15) MEQ/L BUN 13 (7-17) mg/dL Creatinine 0.71 (0.52-1.04) mg/dL Estimated GFR > 60.0 ML/MIN Glucose 90 (74-106) mg/dL Lactic Acid 1.2 (0.4-2.0) Calcium 8.6 (8.4-10.2) mg/dL Total Bilirubin 0.30 (0.2-1.3) mg/dL AST 18 (14-36) U/L ALT 13 (0-35) U/L Alkaline Phosphatase 67 (38-126) U/L Serum Total Protein 6.5 (6.3-8.2) g/dL Albumin 3.4 L (3.5-5.0) g/dL Amylase 61 (30-110) U/L Lipase 48 (23-300) U/L Urinalys Dipstick Clnc Urine Color (YELLOW) Urine Appearance (CLEAR) Urine pH (5-6) Ur Specific [place] (1.005-1.025) POC Urine Protein Conf (Negative) Urine Ketones (NEGATIVE) Urine Nitrite (NEGATIVE) Urine Bilirubin (NEGATIVE) Urine Urobilinogen (0-1) mg/dL Urine Leukocytes (NEGATIVE) Urine WBC (Auto) (0-5) /HPF Urine RBC (Auto) (0-2) /HPF U Epithel Cells (Auto) (FEW) /HPF Urine Bacteria (Auto) (NEGATIVE) /HPF Urine RBC (0-5) David/ul Urine Glucose (NEGATIVE) mg/dL Urine HCG, Qual NEGATIVE (Negative) 01/20/22 01/20/22 Range/Units 04:06 04:06 WBC 5.8 (4.0-10.5) K/mm3 RBC 3.68 L (4.1-5.4) M/mm3 Hgb 12.5 (12.0-16.0) gm/dl Hct 38.2 (35-47) % MCV 103.8 H (78-100) fl MCH 34.0 H (26-32) pg MCHC 32.7 (32-36) g/dl RDW 14.7 H (11.5-14.0) % Plt Count 134 L (150-450) K/mm3 MPV 10.6 (7.5-11.0) fl Gran % 60.4 (36.0-66.0) % Eos # (Auto) 0.09 (0-0.5) Absolute Lymphs (auto) 1.62 (1.0-4.6) Absolute Monos (auto) 0.56 (0.0-1.3) Lymphocytes % 28.1 (24.0-44.0) % Monocytes % 9.7 (0.0-12.0) % Eosinophils % 1.6 (0.00-5.0) % Basophils % 0.2 (0.0-0.4) % Absolute Granulocytes 3.49 (1.4-6.9) Basophils # 0.01 (0-0.4) Sodium (137-145) mmol/L Potassium (3.5-5.1) mmol/L Chloride (98-107) mmol/L Carbon Dioxide (22-30) mmol/L Anion Gap (5-15) MEQ/L BUN (7-17) mg/dL Creatinine (0.52-1.04) mg/dL Estimated GFR ML/MIN Glucose (74-106) mg/dL Lactic Acid (0.4-2.0) Calcium (8.4-10.2) mg/dL Total Bilirubin (0.2-1.3) mg/dL AST (14-36) U/L ALT (0-35) U/L Alkaline Phosphatase (38-126) U/L Serum Total Protein (6.3-8.2) g/dL Albumin (3.5-5.0) g/dL Amylase (30-110) U/L Lipase (23-300) U/L Urinalys Dipstick Clnc MAIN LAB Urine Color YELLOW (YELLOW) Urine Appearance SLIGHTLY CLOUDY (CLEAR) Urine pH 6.0 (5-6) Ur Specific [place] 1.020 (1.005-1.025) POC Urine Protein Conf 100 (Negative) Urine Ketones NEGATIVE (NEGATIVE) Urine Nitrite NEGATIVE (NEGATIVE) Urine Bilirubin NEGATIVE (NEGATIVE) Urine Urobilinogen 0.2 (0-1) mg/dL Urine Leukocytes SMALL (NEGATIVE) Urine WBC (Auto) >100 (0-5) /HPF Urine RBC (Auto) 16-25 (0-2) /HPF U Epithel Cells (Auto) RARE (FEW) /HPF Urine Bacteria (Auto) MODERATE (NEGATIVE) /HPF Urine RBC MODERATE (0-5) David/ul Urine Glucose NEGATIVE (NEGATIVE) mg/dL Urine HCG, Qual (Negative) - Progress Progress: improved, pain not gone completely Counseled pt/family regarding: lab results, diagnosis, need for follow-up, rad results - Departure Departure Disposition: Home Clinical Impression: Ureteral stone with hydronephrosis, Left ureteral calculus Condition: Stable Critical Care Time: Yes Critical Care Time(excluding separately billable procedures): Critical 30-74 mins Referrals: RODGER VALLADARES [Primary Care Provider] - Follow Up with PCP/3 days Instructions: Kidney Stones (DC) Additional Instructions: Discharge/Care Plan RUFUS ISAAC was seen on 01/20/22 in the Emergency Room. The patient was counseled regarding Diagnosis,Lab results, Imaging studies, need for follow up and when to return to the Emergency Room. Prescriptions given: Discharge Note I have spoken with the patient and/or caregivers. I have explained the patient's condition, diagnosis and treatment plan based on the information available to me at this time. I have answered the patient's and/or caregiver's questions and addressed any concerns. The patient and/or caregivers have as good understanding of the patient's diagnosis, condition and treatment plan as can be expected at this point. The vital signs have been stable. The patient's condition is stable and appropriate for discharge from the emergency department. The patient will pursue further outpatient evaluation with the primary care physician or other designated or consulting physician as outlined in the discharge instructions. The patient and/or caregivers are agreeable to this plan of care and follow-up instructions have been explained in detail. The patient and/or caregivers have received these instruction. The patient/and or caregivers are aware that any significant change in condition or worsening of symptoms should prompt an immediate return to this or the closest emergency department or call 911. RUFUS ISAAC was seen on 01/20/22 n the Emergency Room. At that time you were treated for an emergent condition, during your visit Laboratory, Radiology and/or other procedures may have been ordered. It is very important that you follow-up with your Primary Care Physician RODGER VALLADARES within the next 24-48 hours to review your Emergency Room visit and the final results of testing that was ordered. Some test results such as Urine Cultures, Blood Cultures, and other cultures if ordered will not be finalized for 24-48 hours. If you do not have a Primary Care Provider please call the medical records department at [phone] ext [phone] to obtain a copy of your results or you may sign into our patient portal to obtain these results by visiting us @ [email or web address] and completing the following steps: 1. Click on the Patient Portal link 2. Click the Patient Self Enrollment Link to complete the enrollment form and entering your 3. Once the enrollment form is completed you will receive an email with a temporary ID and password at the email address you provided. 4. Next choose a user name and password. Your user name must be at least 4 characters long and your password must be at least 4 characters long. 5. Choose a security question from the list and provide your answer to the question. If you already have signed into the Health Portal you may access your Health Care Information 13/05 by the following steps: 1. Login to our website @ [email or web address] 2. Enter your original user name and password. FAQS The [facility] Health Portal is an online tool that contains your Lab Results, Radiology Reports, Visit History, Discharge Instructions and Health Summary Lab and Radiology Results will not be available for 72 hours on the portal. The Portal is a secure site, passwords are encryted and URLs are re-written so they cannot be copied and pasted. You and authorized family members are the only ones who can access your Portal. Also there is a timeout feature that protects your information if you leave the Portal page open. If you have technical difficulty please use the Contact Us link on the page this will allow you to submit any questions you have regarding the Portal or you may contact the Medical Record Department at [phone] ext [phone]. Prescriptions: Ciprofloxacin [Cipro 500 MG] 500 mg PO BIDAC #20 tablet Tamsulosin HCl 0.4 mg [Flomax 0.4 MG] 0.4 mg PO DAILY #30 cap Hydrocodone/Acetaminophen [Hydrocodone-Acetamin 10-325 mg] 1 tablet PO QIDPRN PRN #15 tablet MDD 4 PRN Reason: Severe Pain
[2022-01-20] MEDS ORDERED: SUBLIMAZE 100 MCG/2 ML ONE (04:15)
[2022-01-20 04:44] LABS: Absolute Neutrophil Ct (ANC) 3.49 (1.4-6.9); Basophil (Absolute #) 0.01 (0-0.4); Eosinophil % 1.6 % (0.00-5.0); Eosinophil (Absolute #) 0.09 (0-0.5); Hematocrit 38.2 % (35-47); Hemoglobin 12.5 gm/dl (12.0-16.0); Lymphocyte (Absolute #) 1.62 (1.0-4.6); Lymphocytes % 28.1 % (24.0-44.0); Mean Cell Volume 103.8 fl (78-100); Mean Corpuscular Hgb Concent. 32.7 g/dl (32-36); Mean Platelet Volume 10.6 fl (7.5-11.0); Monocyte (Absolute #) 0.56 (0.0-1.3); Monocytes % 9.7 % (0.0-12.0); Neutrophil % 60.4 % (36.0-66.0); Platelet Count 134 K/mm3 (150-450); Red Blood Count 3.68 M/mm3 (4.1-5.4); Red Cell Distribution Width 14.7 % (11.5-14.0); White Blood Count 5.8 K/mm3 (4.0-10.5)
[2022-01-20 04:46] LABS: Appearance SLIGHTLY CLOUDY (CLEAR); Bilirubin NEGATIVE (NEGATIVE); Dipstick done @ ? MAIN LAB; Glucose NEGATIVE (NEGATIVE); Ketones NEGATIVE (NEGATIVE); Nitrite NEGATIVE (NEGATIVE); Protein,Urine Dip 100 (Negative); RBC MODERATE Ery/ul (0-5); Urobilinogen 0.2 mg/dL (0-1)
[2022-01-20 04:53] LABS: ALBUMIN 3.4 g/dL (3.5-5.0); ALKALINE PHOSPHATASE 67 U/L (38-126); AMYLASE 61 U/L (30-110); ANION GAP 9.9 MEQ/L (5-15); BLOOD UREA NITROGEN 13 mg/dL (7-17); CHLORIDE 110 mmol/L (98-107); Calcium 8.6 mg/dL (8.4-10.2); Carbon Dioxide 22 mmol/L (22-30); Creatinine 1 0.71 mg/dL (0.52-1.04); EST GLOMERULAR FILTRATION RATE > 60.0 ML/MIN; Glucose 90 mg/dL (74-106); LIPASE 48 U/L (23-300); Potassium 4.1 mmol/L (3.5-5.1); SGOT/AST 18 U/L (14-36); SGPT/ALT 13 U/L (0-35); SODIUM 137 mmol/L (137-145); Total Protein 6.5 g/dL (6.3-8.2)
[2022-01-20 04:53] LABS: Bacteria MODERATE /HPF (NEGATIVE); Epithelial Cells RARE /HPF (FEW); WBC >100 /HPF (0-5)
[2022-01-20 06:19] VITALS: BP 108/67; PULSE 69
[2022-01-20] MEDS ORDERED: Rocephin 1000 MG INJ ONE (06:22)
[2022-01-20] MEDS ORDERED: XYLOCAINE 1% HCL 20 ML MDV ONE (06:22)
[2022-01-20 06:28] VITALS: O2SAT 96
[2022-01-20] MEDS ORDERED: Rocephin 1000 MG INJ IM ONE (06:28)
--- NOTE | 2022-01-20 07:54 | XRAY ---
Indication: Left abdomen/flank pain. Multiple contiguous axial images obtained through the abdomen and pelvis without contrast using renal stone protocol. Comparison: October 11, 2021. Lung bases demonstrates stable benign 1 cm posterior right lower lobe noncalcified nodule. No infiltrate or effusion. Heart not enlarged. New 7-8 mm distal left ureter calculus approximately 4 cm proximal to the UVJ. More proximal left ureter is prominent up to 1 cm along with moderate hydronephrosis and minimal perinephric stranding consistent with obstructive uropathy. Again additional bilateral renal micro-calculi. Noncontrasted stomach and bowel loops are nonobstructed with normal appendix. Again previous cholecystectomy, 20.5 cm hepatomegaly, and 12.9 cm splenomegaly. Remaining liver, pancreas, spleen, adrenal glands, kidneys, ureters, bladder, and uterus are unremarkable for noncontrast exam. Minimal aortoiliac calcifications without AAA. Osseous structures intact again with mild/moderate degenerative changes throughout the spine. Impression: 1. New 7-8 mm distal left ureter calculus producing obstructive uropathy as detailed. 2. Again bilateral renal micro-calculi, hepatosplenomegaly, benign right lower lobe noncalcified nodule, and chronic bony findings. Comment: Preliminary interpretation made by [facility]. No critical discrepancy.
== END 2022-01-20 06:39 | disposition home or self-care (01) ==
LOC: ED 03:36
DX: N13.2 Hydronephrosis with renal and ureteral calculous obstruction (principal); R10.32 Left lower quadrant pain; Z87.442 Personal history of urinary calculi; Z79.899 Other long term (current) drug therapy; Z72.0 Tobacco use; Z79.891 Long term (current) use of opiate analgesic
CPT/HCPCS: 36000; 36415; 74176; 80053; 81001; 82150; 83605; 83690; 84703; 85025; 87077; 87086; 87186; 96360; 96372; 96374; 96375; 99284; 99291; J0696; J1885; J2405; J3010

== ENCOUNTER 2022-10-18 18:29 | Emergency (ER) | payer MEDICARE ==
--- NOTE | 2022-10-18 18:40 | ERPHSYRPT ---
- History of Present Illness Time Seen by Provider: 10/18/22 18:39 Source: patient Exam Limitations: no limitations Physician History: This is a 47-year-old morbidly obese white female patient who was brought into the emergency department via EMS because of left rib pain. Her symptoms began yesterday and has intermittently worsening with sharp stabbing pains. She has been coughing for approximately 2 weeks intermittently. She has no anterior chest pain. She is not short of breath but when these episodes are sharp stabbing pain, it takes her breath away. She denies abdominal pain. She has not had any falls or trauma. She has not had any fevers. Timing/Duration: yesterday Severity: moderate (When the intermittent stabbing and sharp pain comes) Modifying Factors: Improves With: movement Associated Symptoms: cough, No shortness of breath, No chest pain, No fever Allergies/Adverse Reactions: carbamazepine [From Tegretol] Allergy (Verified 10/18/22 18:34) phenytoin [From Dilantin] Allergy (Verified 10/18/22 18:34) Home Medications: Divalproex Sodium 1,000 mg PO BID 07/11/20 [History] Sertraline HCl 50 mg PO DAILY 07/11/20 [History] Topiramate [Topamax] 200 mg PO BID 07/11/20 [History] Hx Tetanus, Diphtheria Vaccination/Date Given: No Hx Influenza Vaccination/Date Given: No Hx Pneumococcal Vaccination/Date Given: No Travel Risk - International Travel Have you traveled outside of the country in past 3 weeks: No - Coronavirus Screening Are you exhibiting any of the following symptoms?: No Close contact with a COVID-19 positive Pt in past 14-21 Days: No - Vaccine Status Have you recieved a Covid-19 vaccination: 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[employer] - Vaccination Dates Date of 2cond Vaccination (if applicable): unknown - Review of Systems Constitutional: No Symptoms Eyes: No Symptoms Ears, Nose, & Throat: No Symptoms Respiratory: Cough, Other (Rib pain) Cardiac: No Symptoms Abdominal/Gastrointestinal: No Symptoms Genitourinary Symptoms: No Symptoms Musculoskeletal: No Symptoms Skin: No Symptoms Neurological: No Symptoms Psychological: No Symptoms Endocrine: No Symptoms Hematologic/Lymphatic: No Symptoms Immunological/Allergic: No Symptoms All Other Systems: Reviewed and Negative - Past Medical History Pertinent Past Medical History: Yes Neurological History: Seizures Musculoskeletal History: Arthritis Psycho-Social History: Bipolar, Depression - Past Surgical History Past Surgical History: Yes Female Surgical History: Section, Tubal Ligation Other Surgical History: c-sections x3 - Social History Smoking Status: Current every day smoker How long have you smoked: years Exposure to second hand smoke: No Drug Use: none Patient Lives Alone: No - Nursing Vital Signs Nursing Vital Signs: Initial Vital Signs Temperature 96.3 F 10/18/22 18:36 Pulse Rate 89 10/18/22 18:36 Respiratory Rate 18 10/18/22 18:36 Blood Pressure 163/98 10/18/22 18:36 O2 Sat by Pulse Oximetry 95 10/18/22 18:36 Pain Scale Pain Intensity 10 - Physical Exam General Appearance: no apparent distress, alert, anxiety Eye Exam: PERRL/EOMI, eyes nml inspection Ears, Nose, Throat Exam: normal ENT inspection, moist mucous membranes Neck Exam: normal inspection, non-tender, supple, full range of motion Respiratory Exam: normal breath sounds, lungs clear, airway intact, other (Left posterior lateral rib pain underneath the left breast with palpation. No evidence of rash or redness. No ecchymosis and no crepitus), No chest tenderness, No respiratory distress Cardiovascular Exam: regular rate/rhythm, normal heart sounds, normal peripheral pulses Gastrointestinal/Abdomen Exam: soft, normal bowel sounds, No tenderness Pelvic Exam: not done Rectal Exam: not done Back Exam: normal inspection, normal range of motion, No CVA tenderness, No vertebral tenderness Extremity Exam: normal inspection, normal range of motion, No pelvis stable Neurologic Exam: alert, oriented x 3, cooperative, correctional guard II-XII nml as tested, normal mood/affect, nml cerebellar function, nml station & gait, sensation nml Skin Exam: normal color, warm, dry Lymphatic Exam: No adenopathy SpO2 Interpretation: normal O2 Delivery: Room Air - Course Nursing assessment & vital signs reviewed: Yes EKG Interpreted by Me: RATE (85), Sinus Rhythm, NORMAL AXIS, NORMAL INTERVALS, NORMAL QRS, NORMAL ST-T, Other (No acute ischemic changes on today's EKG.) Ordered Tests: Active Orders 24 hr Category Date Time Status CHEST 2 VIEWS (PA AND LAT) Stat Exams 10/18/22 18:56 Taken - Progress Progress: improved, pain not gone completely Progress Note: 10/18/22 19:33 Chest x-ray shows no acute cardiopulmonary process/infiltrate. There are no obvious rib fractures. Counseled pt/family regarding: diagnosis, need for follow-up, rad results - Departure Departure Disposition: Home Clinical Impression: Rib pain on left side Condition: Stable Critical Care Time: No Referrals: RODGER VALLADARES [Primary Care Provider] - Follow up/PCP as directed Additional Instructions: May alternate ice and heat to the tender ribs on the left side. If there are no contraindications, may use ibuprofen 600 mg orally with food 3 times a day for the next 5 days. Follow-up with your primary care provider for further evaluation management Prescriptions: Oxycodone HCl/Acetaminophen [Percocet 5-325 mg Tablet] 1 each PO Q8H PRN PRN #6 tablet MDD 3 PRN Reason: Moderate To Severe Pain
[2022-10-18] MEDS ORDERED: Hydromorphone 1 mg/ml Injection IM ONE (19:32)
[2022-10-18] MEDS ORDERED: Norflex 60 MG/2 ML IM ONE (19:32)
[2022-10-18] MEDS ORDERED: ZOFRAN ODT 4 MG PO ONE (19:33)
[2022-10-18] MEDS ORDERED: Norflex 60 MG/2 ML ONE (19:45)
[2022-10-18] MEDS ORDERED: Hydromorphone 1 mg/ml Injection ONE (19:46)
[2022-10-18] MEDS ORDERED: ZOFRAN ODT 4 MG ONE (19:46)
[2022-10-18 20:14] VITALS: BP 154/99; PULSE 86; O2SAT 98
--- NOTE | 2022-10-19 08:49 | XRAY ---
Indication: Left rib pain. No known injury. Comparison: None PA/lateral chest slightly underinflated and clear. Heart and mediastinal structures within normal limits. Bony thorax intact with minimal degenerative changes. Impression: Nonacute chest.
== END 2022-10-18 20:29 | disposition home or self-care (01) ==
LOC: ED 18:29
DX: R07.81 Pleurodynia (principal); R05.9 Cough, unspecified; Z79.891 Long term (current) use of opiate analgesic; Z79.899 Other long term (current) drug therapy; Z72.0 Tobacco use
CPT/HCPCS: 36000; 71046; 93005; 96372; 99284; J1170; J2360; Q0162

== ENCOUNTER 2022-12-28 11:55 | Emergency (ER) | payer MEDICARE ==
[2022-12-28] MEDS ORDERED: CLONIDINE 0.1 MG TABLET PO PRN (12:37)
[2022-12-28] MEDS ORDERED: Lotrel 5/10 MG PO STA (12:38)
--- NOTE | 2022-12-28 12:53 | XRAY ---
Indication: Cough. Comparison: October 18, 2022 Portable chest demonstrates new right mid to lower lung hazy airspace disease without consolidation/large effusion. Remaining heart, left lung, and bony thorax unremarkable.
[2022-12-28 12:56] LABS: Absolute Neutrophil Ct (ANC) 3.35 x10^3/uL (1.4-6.9); BASOPHIL % 0.2 % (0.0-0.4); Basophil (Absolute #) 0.01 x10^3/uL (0-0.4); Eosinophil % 2.3 % (0.00-5.0); Eosinophil (Absolute #) 0.12 x10^3/uL (0-0.5); Hematocrit 40.9 % (35-47); Hemoglobin 13.3 g/dL (12.0-16.0); IMMATURE GRAN # 0.02 x10^3u/L (0.00-0.03); IMMATURE GRAN % 0.4 % (0.00-0.4); Lymphocytes % 25.1 % (24.0-44.0); Mean Corpuscular Hemoglobin 30.6 pg (26-32); Mean Corpuscular Hgb Concent. 32.5 g/dL (32-36); Mean Platelet Volume 10.3 fL (7.5-11.0); Monocyte (Absolute #) 0.38 x10^3/uL (0.0-1.3); Monocytes % 7.3 % (0.0-12.0); Neutrophil % 64.7 % (36.0-66.0); Platelet Count 197 x10^3/uL (150-450); Red Blood Count 4.35 x10^6/uL (4.1-5.4); Red Cell Distribution Width 14.5 % (11.5-14.0); White Blood Count 5.2 x10^3/uL (4.0-10.5)
[2022-12-28] MEDS ORDERED: CLONIDINE 0.1 MG TABLET ONE ×2 (13:03→13:42)
[2022-12-28 13:05] LABS: Appearance Cloudy (Clear); Bacteria None Seen /HPF (None Seen); Bilirubin Negative (Negative); Blood Trace (Negative); Epithelial Cells Moderate /HPF (None Seen); Glucose, Urine Negative (Negative); Hyaline Casts NONE SEEN /LPF (0-2); Ketones Negative (Negative); Leukocyte Esterase Negative (Negative); Nitrite Negative (Negative); Protein,Urine Dip 100 (Negative); Urobilinogen 0.2 mg/dL (0.2); WBC 0-2 /HPF (0-5)
[2022-12-28 13:08] LABS: ADD URINE CULTURE? NO (NO)
[2022-12-28 13:15] LABS: ALBUMIN 4.1 g/dL (3.5-5.0); ALKALINE PHOSPHATASE 89 U/L (38-126); ANION GAP 12.2 MEQ/L (5-15); BLOOD UREA NITROGEN 19 mg/dL (7-17); CHLORIDE 104 mmol/L (98-107); Calcium 9.4 mg/dL (8.4-10.2); Carbon Dioxide 26 mmol/L (22-30); Creatinine 1 0.67 mg/dL (0.52-1.04); EST GLOMERULAR FILTRATION RATE > 60.0 ML/MIN; Glucose 101 mg/dL (74-106); Potassium 5.1 mmol/L (3.5-5.1); SGOT/AST 24 U/L (14-36); SGPT/ALT 23 U/L (0-35); SODIUM 137 mmol/L (137-145); Total Protein 7.4 g/dL (6.3-8.2)
[2022-12-28 13:21] VITALS: PULSE 80
[2022-12-28 13:33] LABS: INFLUENZA A NEGATIVE (NEGATIVE); INFLUENZA B NEGATIVE (NEGATIVE); RESPIRATORY SYNCTIAL VIRUS NEGATIVE (Negative); SARS-CoV-2 Xpert Express NEGATIVE (NEGATIVE)
[2022-12-28] MEDS ORDERED: CLONIDINE 0.1 MG TABLET PO ONE (13:42)
[2022-12-28] MEDS ORDERED: ROCEPHIN 1 Gm-D5w 50 ml Bag** 1 G/50 ML IVPB IV STA (13:43)
[2022-12-28] MEDS ORDERED: Rocephin 1000 MG INJ IM ONE (13:47)
[2022-12-28] MEDS ORDERED: Rocephin 1000 MG INJ ONE (13:49)
[2022-12-28] MEDS ORDERED: XYLOCAINE 1% HCL 20 ML MDV ONE (13:49)
--- NOTE | 2022-12-28 13:53 | ERPHSYRPT ---
- History of Present Illness Time Seen by Provider: 12/28/22 12:20 Source: patient Exam Limitations: no limitations Patient Subjective Stated Complaint: C/O increasingly high B/P that started last . Patient reports that her primary care provider (Dr. Flores) errol mmended that she come to the ER. Triage Nursing Assessment: Patient ambulated back to ER without difficulties. NO SOB; very talkative. ALert and oriented. STOREY WNL. Skin tone normal. Physician History: Patient is a 47-year-old female who presents with a elevated blood pressure of 185/114. She was seen by Dr. Cuenca your PCP last restarted on lisinopril 5 mg daily yesterday she saw her neurologist and they found her blood pressure to be 190/140. She has had some slight cough she also has had diarrhea on and off for nearly 2 weeks now. She has a GI appointment in January. Timing/Duration: week(s) (2) Severity: moderate Modifying Factors: Improves With: nothing Associated Symptoms: cough Allergies/Adverse Reactions: carbamazepine [From Tegretol] Allergy (Verified 12/28/22 12:15) phenytoin [From Dilantin] Allergy (Verified 12/28/22 12:15) Home Medications: Sertraline HCl 100 mg PO DAILY 07/11/20 [History] Cephalexin Mh 500 mg [Keflex 500 mg] 1 cap PO QID 12/28/22 [History] Folic Acid 1 mg [Folate 1 mg] 1 tab PO DAILY 12/28/22 [History] Lacosamide [Vimpat] 1 tab PO BID 12/28/22 [History] Levothyroxine Sodium [Levothyroxine] 1 cap PO DAILY 12/28/22 [History] Nystatin 60 ml [Nystatin SUSPENSION 60 ML] 5 ml PO TID 12/28/22 [History] lamoTRIgine [Lamotrigine] 1 tab PO BID 12/28/22 [History] lisinopriL [Lisinopril] 1 tab PO DAILY 12/28/22 [History] Hx Tetanus, Diphtheria Vaccination/Date Given: Yes Hx Influenza Vaccination/Date Given: No Hx Pneumococcal Vaccination/Date Given: No Immunizations Up to Date: Yes Travel Risk - International Travel Have you traveled outside of the country in past 3 weeks: No - Coronavirus Screening Are you exhibiting any of the following symptoms?: No Close contact with a COVID-19 positive Pt in past 14-21 Days: No - Vaccine Status Have you recieved a Covid-19 vaccination: Yes [employer]: Pfizer - Vaccination Dates Date of 2cond Vaccination (if applicable): unknown - Review of Systems Constitutional: No Fever, No Chills Eyes: No Symptoms Ears, Nose, & Throat: No Symptoms Respiratory: Cough, No Dyspnea Cardiac: No Chest Pain, No Edema, No Syncope Abdominal/Gastrointestinal: Diarrhea, No Abdominal Pain, No Nausea, No Vomiting Genitourinary Symptoms: No Dysuria Musculoskeletal: No Back Pain, No Neck Pain Skin: No Rash Neurological: No Dizziness, No Focal Weakness, No Sensory Changes Psychological: No Symptoms Endocrine: No Symptoms All Other Systems: Reviewed and Negative - Past Medical History Pertinent Past Medical History: Yes Neurological History: Seizures Cardiac History: Hypertension Endocrine Medical History: Hypothyroidism Musculoskeletal History: Arthritis Psycho-Social History: Anxiety, Bipolar, Depression - Past Surgical History Past Surgical History: Yes Female Surgical History: Section, Tubal Ligation Other Surgical History: c-sections x3 - Social History Smoking Status: Current every day smoker How long have you smoked: 36 years Exposure to second hand smoke: No Drug Use: none Patient Lives Alone: No - Female History Hx Last Menstrual Period: May 2022 Hx Now: No (tubal) - Nursing Vital Signs Nursing Vital Signs: Initial Vital Signs Pulse Rate 103 H 12/28/22 12:15 Respiratory Rate 20 12/28/22 12:15 Blood Pressure 185/114 12/28/22 12:15 O2 Sat by Pulse Oximetry 97 12/28/22 12:15 Pain Scale Pain Intensity 5 - Physical Exam General Appearance: mild distress, alert Eye Exam: PERRL/EOMI, eyes nml inspection Ears, Nose, Throat Exam: normal ENT inspection, TMs normal, pharynx normal, moist mucous membranes Neck Exam: normal inspection, non-tender, supple, full range of motion Respiratory Exam: normal breath sounds, lungs clear, No respiratory distress Cardiovascular Exam: regular rate/rhythm, normal heart sounds, normal peripheral pulses Gastrointestinal/Abdomen Exam: soft, normal bowel sounds, No tenderness, No mass Back Exam: normal inspection, normal range of motion, No CVA tenderness, No vertebral tenderness Extremity Exam: normal inspection, normal range of motion, pelvis stable Neurologic Exam: alert, oriented x 3, cooperative, normal mood/affect, nml cerebellar function, nml station & gait, sensation nml, No motor deficits Skin Exam: normal color, warm, dry, No rash Lymphatic Exam: No adenopathy SpO2 Interpretation: normal SpO2: 94 O2 Delivery: Room Air - Course Nursing assessment & vital signs reviewed: Yes EKG Interpreted by Me: RATE, Sinus Rhythm (76), NORMAL AXIS, NORMAL INTERVALS, NORMAL QRS - Radiology Exams Chest X-ray Interpretation: Other (Right middle to lower lobe on the right infiltrate) Ordered Tests: Active Orders 24 hr Category Date Time Status EKG-ER Only STAT Care 12/28/22 12:36 Active CHEST 1 VIEW (PORTABLE) Stat Exams 12/28/22 12:37 Completed CBC W DIFF Stat Lab 12/28/22 12:55 Completed CMP Stat Lab 12/28/22 12:55 Completed FECAL OCCULT BLOOD - SCREENING Stat Lab 12/28/22 12:34 Ordered Lactic Acid Stat Lab 12/28/22 12:33 Ordered TROPONIN Q4H Lab 12/28/22 12:55 Completed TROPONIN Q4H Lab 12/28/22 16:45 Ordered TROPONIN Q4H Lab 12/28/22 20:45 Ordered UA W/RFX UR CULTURE Stat Lab 12/28/22 12:47 Completed Medication Summary Generic Name Dose Route Start Last Admin Trade Name Freq PRN Reason Stop Dose Admin Clonidine 0.1 mg 12/28/22 12:37 12/28/22 13:06 Clonidine Hcl 0.1 Mg Tablet PO 01/27/23 12:36 0.1 mg [id number] PRN Administration ELEVATED BLOOD PRESSURE Ceftriaxone Sodium/Dextrose 1 g in 50 mls @ 100 mls/hr 12/28/22 13:43 Rocephin 1 Gm-D5w 50 Ml Bag IV 12/28/22 14:12 STAT STA Discontinued Medications Generic Name Dose Route Start Last Admin Trade Name Freq PRN Reason Stop Dose Admin Amlodipine/Benazepril HCl 1 cap 12/28/22 12:38 12/28/22 13:04 Amlodipine/Benzapril 5mg/10mg Capsule PO 12/28/22 12:39 1 cap ONCE STA Administration Clonidine 0.1 mg 12/28/22 13:42 12/28/22 13:43 Clonidine Hcl 0.1 Mg Tablet PO 12/28/22 13:43 0.1 mg STAT ONE Administration Lab/Rad Data: Laboratory Result Diagrams 12/28/22 12:55 12/28/22 12:55 Laboratory Results 12/28/22 12/28/22 12/28/22 Range/Units 12:55 12:55 12:55 WBC (4.0-10.5) x10^3/uL RBC (4.1-5.4) x10^6/uL Hgb (12.0-16.0) g/dL Hct (35-47) % MCV (78-100) fL MCH (26-32) pg MCHC (32-36) g/dL RDW (11.5-14.0) % Plt Count (150-450) x10^3/uL MPV (7.5-11.0) fL Gran % (36.0-66.0) % Immature Gran % (Auto) (0.00-0.4) % Nucleat RBC Rel Count (0.00-0.1) % Eos # (Auto) (0-0.5) x10^3/uL Immature Gran # (Auto) (0.00-0.03) x10^3u/L Absolute Lymphs (auto) (1.0-4.6) x10^3/uL Absolute Monos (auto) (0.0-1.3) x10^3/uL Absolute Nucleated RBC (0.00-0.01) x10^3u/L Lymphocytes % (24.0-44.0) % Monocytes % (0.0-12.0) % Eosinophils % (0.00-5.0) % Basophils % (0.0-0.4) % Absolute Granulocytes (1.4-6.9) x10^3/uL Basophils # (0-0.4) x10^3/uL Sodium 137 (137-145) mmol/L Potassium 5.1 (3.5-5.1) mmol/L Chloride 104 (98-107) mmol/L Carbon Dioxide 26 (22-30) mmol/L Anion Gap 12.2 (5-15) MEQ/L BUN 19 H (7-17) mg/dL Creatinine 0.67 (0.52-1.04) mg/dL Estimated GFR > 60.0 ML/MIN Glucose 101 (74-106) mg/dL Calcium 9.4 (8.4-10.2) mg/dL Total Bilirubin 0.30 (0.2-1.3) mg/dL AST 24 (14-36) U/L ALT 23 (0-35) U/L Alkaline Phosphatase 89 (38-126) U/L Troponin I 0.012 (0.000-0.034) ng/mL Serum Total Protein 7.4 (6.3-8.2) g/dL Albumin 4.1 (3.5-5.0) g/dL Urine Color (Yellow) Urine Appearance (Clear) Urine pH (4.6-8.0) Ur Specific [place] (1.005-1.030) Urine Protein (Negative) Urine Glucose (UA) (Negative) mg/dL Urine Ketones (Negative) Urine Blood (Negative) Urine Nitrite (Negative) Urine Bilirubin (Negative) Urine Urobilinogen (0.2) mg/dL Ur Leukocyte Esterase (Negative) U Hyaline Cast (Auto) (0-2) /LPF Urine Microscopic RBC (0-5) /HPF Urine Microscopic WBC (0-5) /HPF Ur Epithelial Cells (None Seen) /HPF Urine Bacteria (None Seen) /HPF Urine Culture Reflexed (NO) Influenza Type A Ag NEGATIVE (NEGATIVE) Influenza Type B Ag NEGATIVE (NEGATIVE) RSV (PCR) NEGATIVE (Negative) SARS-CoV-2 (PCR) NEGATIVE (NEGATIVE) 12/28/22 12/28/22 Range/Units 12:55 12:47 WBC 5.2 (4.0-10.5) x10^3/uL RBC 4.35 (4.1-5.4) x10^6/uL Hgb 13.3 (12.0-16.0) g/dL Hct 40.9 (35-47) % MCV 94.0 (78-100) fL MCH 30.6 (26-32) pg MCHC 32.5 (32-36) g/dL RDW 14.5 H (11.5-14.0) % Plt Count 197 (150-450) x10^3/uL MPV 10.3 (7.5-11.0) fL Gran % 64.7 (36.0-66.0) % Immature Gran % (Auto) 0.4 (0.00-0.4) % Nucleat RBC Rel Count 0.0 (0.00-0.1) % Eos # (Auto) 0.12 (0-0.5) x10^3/uL Immature Gran # (Auto) 0.02 (0.00-0.03) x10^3u/L Absolute Lymphs (auto) 1.30 (1.0-4.6) x10^3/uL Absolute Monos (auto) 0.38 (0.0-1.3) x10^3/uL Absolute Nucleated RBC 0.00 (0.00-0.01) x10^3u/L Lymphocytes % 25.1 (24.0-44.0) % Monocytes % 7.3 (0.0-12.0) % Eosinophils % 2.3 (0.00-5.0) % Basophils % 0.2 (0.0-0.4) % Absolute Granulocytes 3.35 (1.4-6.9) x10^3/uL Basophils # 0.01 (0-0.4) x10^3/uL Sodium (137-145) mmol/L Potassium (3.5-5.1) mmol/L Chloride (98-107) mmol/L Carbon Dioxide (22-30) mmol/L Anion Gap (5-15) MEQ/L BUN (7-17) mg/dL Creatinine (0.52-1.04) mg/dL Estimated GFR ML/MIN Glucose (74-106) mg/dL Calcium (8.4-10.2) mg/dL Total Bilirubin (0.2-1.3) mg/dL AST (14-36) U/L ALT (0-35) U/L Alkaline Phosphatase (38-126) U/L Troponin I (0.000-0.034) ng/mL Serum Total Protein (6.3-8.2) g/dL Albumin (3.5-5.0) g/dL Urine Color Yellow (Yellow) Urine Appearance Cloudy A (Clear) Urine pH 6.0 (4.6-8.0) Ur Specific [place] 1.020 (1.005-1.030) Urine Protein 100 A (Negative) Urine Glucose (UA) Negative (Negative) mg/dL Urine Ketones Negative (Negative) Urine Blood Trace (Negative) Urine Nitrite Negative (Negative) Urine Bilirubin Negative (Negative) Urine Urobilinogen 0.2 (0.2) mg/dL Ur Leukocyte Esterase Negative (Negative) U Hyaline Cast (Auto) NONE SEEN (0-2) /LPF Urine Microscopic RBC 3-5 (0-5) /HPF Urine Microscopic WBC 0-2 (0-5) /HPF Ur Epithelial Cells Moderate A (None Seen) /HPF Urine Bacteria None Seen (None Seen) /HPF Urine Culture Reflexed NO (NO) Influenza Type A Ag (NEGATIVE) Influenza Type B Ag (NEGATIVE) RSV (PCR) (Negative) SARS-CoV-2 (PCR) (NEGATIVE) - Progress Progress: unchanged Medical Desision Making - Diagnostic Testing Diagnostic test were ordered, analyzed, and reviewed by me: Yes Radiological Interpretation: Reviewed by me - Risk of complications The pt has a mod risk of morbidity or mortality based on: Need for prescription drug management - Departure Departure Disposition: Home Clinical Impression: Hypertension, Right lower lobe pneumonia, Diarrhea Condition: Stable Critical Care Time: No Referrals: RODGER VALLADARES [Primary Care Provider] - Follow up/PCP as directed Instructions: Pneumonia, Adult (DC), Malignant Hypertension (DC) Prescriptions: Cephalexin Mh 500 mg [Keflex 500 mg] 500 mg PO Q6H 10 Days #40 cap Amlodipine Besylate 5 mg [Norvasc 5 mg] 10 mg PO DAILY 30 Days #30 tablet
[2022-12-28 14:06] VITALS: BP 148/97; O2SAT 95
== END 2022-12-28 14:11 | disposition home or self-care (01) ==
LOC: ED 11:55
DX: I10 Essential (primary) hypertension (principal); J18.9 Pneumonia, unspecified organism; R19.7 Diarrhea, unspecified; R05.9 Cough, unspecified; Z79.899 Other long term (current) drug therapy; Z72.0 Tobacco use; Z20.828 Contact with and (suspected) exposure to other viral communicable diseases
CPT/HCPCS: 0241U; 36415; 71045; 80053; 81001; 83605; 84484; 85025; 93005; 96372; 99284; J0696; A9270-GY

== ENCOUNTER 2023-01-07 19:31 | Emergency (ER) | payer MEDICARE ==
[2023-01-07] MEDS ORDERED: Pepcid 20 MG VIAL IV ONE ×2 (19:40→20:01)
[2023-01-07] MEDS ORDERED: Sodium Chloride 0.9% 1000 ML 1,000 ML IV STA (19:40)
[2023-01-07] MEDS ORDERED: BABY ASPIRIN 81 MG CHEW PO ONE (19:40)
[2023-01-07] MEDS ORDERED: Nitrostat 0.4 MG (ED) SL ONE (19:40)
[2023-01-07] MEDS ORDERED: Zofran 4 MG/2 ML VIAL IV ONE (19:40)
--- NOTE | 2023-01-07 19:42 | ERPHSYRPT ---
- History of Present Illness Time Seen by Provider: 01/07/23 19:42 Historian: patient Exam Limitations: no limitations Physician History: Pt c/o chest pain; a few episodes during last few weeks. Worsening today Pain located on center. + radiation to right arm Described as pressure. Lasts for a few minutes. Both at rest and on exertion. Endorses SOB that is worse at night and when lying down BP elevated at home, 197/115 reported +N/V/D Denies heartburn, abd pain, fevers, [place], vision changes Timing/Duration: day(s) (3) Activities at Onset: rest Quality: pressure Location: central Chest Pain Radiation: arm Severity of Pain-Max: severe Severity of Pain-Current: severe Modifying Factors: Improves With: nothing. Worsens With: lying down Associated Symptoms: nausea, vomiting, shortness of breath, No abdominal pain, No cough, No fever, No headache Prior Chest Pain/Cardiac Workup: no prior chest pain Nitro Today/Relief: 0.4 mg x 1, provided by ED Aspirin Treatment Today: 81 mg x 4, provided by ED Allergies/Adverse Reactions: carbamazepine [From Tegretol] Allergy (Verified 01/07/23 19:36) phenytoin [From Dilantin] Allergy (Verified 01/07/23 19:36) Home Medications: Sertraline HCl 100 mg PO DAILY 07/11/20 [History] Cephalexin Mh 500 mg [Keflex 500 mg] 1 cap PO QID 12/28/22 [History] Folic Acid 1 mg [Folate 1 mg] 1 tab PO DAILY 12/28/22 [History] Lacosamide [Vimpat] 1 tab PO BID 12/28/22 [History] Levothyroxine Sodium [Levothyroxine] 1 cap PO DAILY 12/28/22 [History] Nystatin 60 ml [Nystatin SUSPENSION 60 ML] 5 ml PO TID 12/28/22 [History] lamoTRIgine [Lamotrigine] 1 tab PO BID 12/28/22 [History] lisinopriL [Lisinopril] 1 tab PO DAILY 12/28/22 [History] Hx Tetanus, Diphtheria Vaccination/Date Given: Yes Hx Influenza Vaccination/Date Given: No Hx Pneumococcal Vaccination/Date Given: No Travel Risk - Vaccine Status Have you recieved a Covid-19 vaccination: Yes [employer]: Pfizer - Vaccination Dates Date of 2cond Vaccination (if applicable): unknown - Review of Systems Constitutional: No Fever, No Chills Eyes: No Vision Changes, No Double Vision Ears, Nose, & Throat: No Symptoms Respiratory: Dyspnea, Dyspnea on Exertion ([place]), No Cough Cardiac: Chest Pain, Orthopnea, PND, No Edema, No Palpitations Abdominal/Gastrointestinal: Nausea, Vomiting, No Abdominal Pain, No Diarrhea Genitourinary Symptoms: No Symptoms Musculoskeletal: Arthralgias, Joint Pain, Myalgias, No Joint Redness, No Joint Swelling Skin: No Symptoms Neurological: No Symptoms Psychological: Anxiety, Emotional Lability - Past Medical History Pertinent Past Medical History: Yes Neurological History: Seizures Cardiac History: Hypertension Endocrine Medical History: Hypothyroidism Musculoskeletal History: Arthritis Psycho-Social History: Anxiety, Bipolar, Depression - Past Surgical History Past Surgical History: Yes Female Surgical History: Section, Tubal Ligation Other Surgical History: c-sections x3 - Social History Smoking Status: Current every day smoker How long have you smoked: 36 years Exposure to second hand smoke: No Drug Use: none Patient Lives Alone: No - Nursing Vital Signs Nursing Vital Signs: Initial Vital Signs Temperature 97.8 F 01/07/23 19:36 Pulse Rate 104 H 01/07/23 19:36 Respiratory Rate 16 01/07/23 19:36 Blood Pressure 147/107 01/07/23 19:36 O2 Sat by Pulse Oximetry 98 01/07/23 19:36 Pain Scale Pain Intensity 7 - Physical Exam General Appearance: mild distress, obese Eye Exam: PERRL/EOMI, eyes nml inspection Ears, Nose, Throat Exam: normal ENT inspection Neck Exam: normal inspection, supple, full range of motion Respiratory Exam: normal breath sounds, chest tenderness, lungs clear, airway intact, No respiratory distress Cardiovascular Exam: regular rate/rhythm, normal heart sounds, capillary refill <2 sec, edema Gastrointestinal/Abdomen Exam: soft, normal bowel sounds, No tenderness, No distention, No guarding, No rebound Extremity Exam: normal inspection, normal range of motion, tenderness, No hossein's sign, No swelling Neurologic Exam: alert, oriented x 3, cooperative, early education teacher II-XII nml as tested, nml cerebellar function, nml station & gait, sensation nml Skin Exam: normal color, warm, dry SpO2 Interpretation: normal O2 Delivery: Room Air - Course Nursing assessment & vital signs reviewed: Yes EKG Interpreted by Me: RATE (106), Sinus Tach, NORMAL AXIS, NORMAL INTERVALS, NORMAL QRS, NORMAL ST-T - Radiology Exams Chest X-ray Interpretation: Interpreted by me, Negative - CT Exams Chest CT Interpretation: Negative, Tele-radiologist Report, No PE Ordered Tests: Active Orders 24 hr Category Date Time Status AMA [Release AMA] OM.NOW Care 01/07/23 23:47 Completed CHEST WITH CONTRAST [CT] Stat Exams 01/07/23 20:52 Completed Urine Triage Profile Stat Lab 01/07/23 22:08 Completed Medication Summary Discontinued Medications Generic Name Dose Route Start Last Admin Trade Name Delq PRN Reason Stop Dose Admin Aspirin 324 mg 01/07/23 19:40 01/07/23 20:11 Aspirin 81 Mg Tab.Chew PO 01/07/23 19:41 324 mg STAT ONE Administration Famotidine 20 mg 01/07/23 19:40 01/07/23 20:09 Famotidine 20 Mg/1 Vial IV 01/07/23 19:41 20 mg STAT ONE Administration Famotidine Confirm 01/07/23 20:01 Famotidine 20 Mg/1 Vial Administered 01/07/23 20:02 Dose 20 mg IV .STK-MED ONE Sodium Chloride 1,000 mls @ 999 mls/hr 01/07/23 19:40 01/07/23 21:19 Sodium Chloride 0.9% 1000 Ml IV 01/07/23 20:40 Infused .Q1H1M STA Infusion Sodium Chloride Confirm 01/07/23 20:01 Sodium Chloride 0.9% 1000 Ml Administered 01/07/23 20:02 Dose 1,000 mls @ ud .ROUTE .STK-MED ONE Labetalol HCl 20 mg 01/07/23 20:19 01/07/23 20:59 Labetalol Hcl 20 Mg/4 Ml Disp.Syringe IV 01/07/23 20:20 20 mg STAT ONE Administration Labetalol HCl Confirm 01/07/23 20:53 Labetalol Hcl 20 Mg/4 Ml Disp.Syringe Administered 01/07/23 20:54 Dose 20 mg IV .STK-MED ONE Lorazepam 2 mg 01/07/23 20:57 Lorazepam 2 Mg/1 Ml 2 Mg Vial IV 01/07/23 20:58 STAT ONE Nitroglycerin 0.4 mg 01/07/23 19:40 01/07/23 20:12 Nitroglycerin 0.4 Mg (Ed) 0.4 Mg Tab.Subl SL 01/07/23 19:41 0.4 mg STAT ONE Administration Ondansetron HCl 4 mg 01/07/23 19:40 01/07/23 20:08 Ondansetron Hcl 4 Mg/2 Ml Vial IV 01/07/23 19:41 4 mg STAT ONE Administration Ondansetron HCl Confirm 01/07/23 20:01 Ondansetron Hcl 4 Mg/2 Ml Vial Administered 01/07/23 20:02 Dose 4 mg .ROUTE .STK-MED ONE Lab/Rad Data: Laboratory Result Diagrams 01/07/23 19:45 01/07/23 19:45 Laboratory Results 01/07/23 01/07/23 01/07/23 Range/Units 22:08 19:45 19:45 WBC (4.0-10.5) x10^3/uL RBC (4.1-5.4) x10^6/uL Hgb (12.0-16.0) g/dL Hct (35-47) % MCV (78-100) fL MCH (26-32) pg MCHC (32-36) g/dL RDW (11.5-14.0) % Plt Count (150-450) x10^3/uL MPV (7.5-11.0) fL Gran % (36.0-66.0) % Immature Gran % (Auto) (0.00-0.4) % Nucleat RBC Rel Count (0.00-0.1) % Eos # (Auto) (0-0.5) x10^3/uL Immature Gran # (Auto) (0.00-0.03) x10^3u/L Absolute Lymphs (auto) (1.0-4.6) x10^3/uL Absolute Monos (auto) (0.0-1.3) x10^3/uL Absolute Nucleated RBC (0.00-0.01) x10^3u/L Lymphocytes % (24.0-44.0) % Monocytes % (0.0-12.0) % Eosinophils % (0.00-5.0) % Basophils % (0.0-0.4) % Absolute Granulocytes (1.4-6.9) x10^3/uL Basophils # (0-0.4) x10^3/uL D-Dimer (0.0-0.50) mg/L Sodium (137-145) mmol/L Potassium (3.5-5.1) mmol/L Chloride (98-107) mmol/L Carbon Dioxide (22-30) mmol/L Anion Gap (5-15) MEQ/L BUN (7-17) mg/dL Creatinine (0.52-1.04) mg/dL Estimated GFR ML/MIN Glucose (74-106) mg/dL Calcium (8.4-10.2) mg/dL Total Bilirubin (0.2-1.3) mg/dL AST (14-36) U/L ALT (0-35) U/L Alkaline Phosphatase (38-126) U/L Troponin I < 0.012 (0.000-0.034) ng/mL NT-Pro-B Natriuret Pep 274 (<300) pg/mL Serum Total Protein (6.3-8.2) g/dL Albumin (3.5-5.0) g/dL Urine Opiates Level NEGATIVE (NEGATIVE) Ur Methadone NEGATIVE (NEGATIVE) Urine Barbiturates NEGATIVE (NEGATIVE) Ur Phencyclidine (PCP) NEGATIVE (NEGATIVE) Urine Amphetamine NEGATIVE (NEGATIVE) U Benzodiazepine Level NEGATIVE (NEGATIVE) Urine Cocaine NEGATIVE (NEGATIVE) Urine Marijuana (THC) NEGATIVE (NEGATIVE) 01/07/23 01/07/23 01/07/23 Range/Units 19:45 19:45 19:45 WBC 6.9 (4.0-10.5) x10^3/uL RBC 4.35 (4.1-5.4) x10^6/uL Hgb 13.3 (12.0-16.0) g/dL Hct 40.7 (35-47) % MCV 93.6 (78-100) fL MCH 30.6 (26-32) pg MCHC 32.7 (32-36) g/dL RDW 14.8 H (11.5-14.0) % Plt Count 232 (150-450) x10^3/uL MPV 10.5 (7.5-11.0) fL Gran % 72.8 H (36.0-66.0) % Immature Gran % (Auto) 0.1 (0.00-0.4) % Nucleat RBC Rel Count 0.0 (0.00-0.1) % Eos # (Auto) 0.09 (0-0.5) x10^3/uL Immature Gran # (Auto) 0.01 (0.00-0.03) x10^3u/L Absolute Lymphs (auto) 1.40 (1.0-4.6) x10^3/uL Absolute Monos (auto) 0.36 (0.0-1.3) x10^3/uL Absolute Nucleated RBC 0.00 (0.00-0.01) x10^3u/L Lymphocytes % 20.3 L (24.0-44.0) % Monocytes % 5.2 (0.0-12.0) % Eosinophils % 1.3 (0.00-5.0) % Basophils % 0.3 (0.0-0.4) % Absolute Granulocytes 5.02 (1.4-6.9) x10^3/uL Basophils # 0.02 (0-0.4) x10^3/uL D-Dimer 0.52 H (0.0-0.50) mg/L Sodium 139 (137-145) mmol/L Potassium 4.4 (3.5-5.1) mmol/L Chloride 107 (98-107) mmol/L Carbon Dioxide 25 (22-30) mmol/L Anion Gap 11.2 (5-15) MEQ/L BUN 15 (7-17) mg/dL Creatinine 0.89 (0.52-1.04) mg/dL Estimated GFR > 60.0 ML/MIN Glucose 112 H (74-106) mg/dL Calcium 9.5 (8.4-10.2) mg/dL Total Bilirubin 0.40 (0.2-1.3) mg/dL AST 25 (14-36) U/L ALT 26 (0-35) U/L Alkaline Phosphatase 82 (38-126) U/L Troponin I (0.000-0.034) ng/mL NT-Pro-B Natriuret Pep (<300) pg/mL Serum Total Protein 7.1 (6.3-8.2) g/dL Albumin 4.0 (3.5-5.0) g/dL Urine Opiates Level (NEGATIVE) Ur Methadone (NEGATIVE) Urine Barbiturates (NEGATIVE) Ur Phencyclidine (PCP) (NEGATIVE) Urine Amphetamine (NEGATIVE) U Benzodiazepine Level (NEGATIVE) Urine Cocaine (NEGATIVE) Urine Marijuana (THC) (NEGATIVE) - Progress Progress: improved Air Movement: good Progress Note: Patient's was due for 2nd Troponin and refused lab draw stating she wanted to leave [facility] due to her ride having to pick her up before midnight. I tried to get the patient to get the lab drawn and wait until we had 2 neg Troponins and an EKG prior to discharging her, but she refused and signed [facility] paperwork. Her labs and imaging showed no acute cause for her CP and SOB. Her BP was much improved from arrival as well. I encouraged patient to f/u closely w/ PCP. Blood Culture(s) Obtained: No Antibiotics given: No Counseled pt/family regarding: lab results, rad results Medical Desision Making - Diagnostic Testing Diagnostic test were ordered, analyzed, and reviewed by me: Yes Radiological Interpretation: Reviewed by me, Teleradiologist Report - Risk of complications The pt has a mod risk of morbidity or mortality based on: Need for prescription drug management - Departure Departure Disposition: AMA Clinical Impression: Hypertensive urgency, Elevated d-dimer, Chest pain Condition: Good Critical Care Time: No Referrals: RODGER VALLADARES [Primary Care Provider] - Follow up/PCP as directed Instructions: Malignant Hypertension, Chest Pain (DC)
[2023-01-07] MEDS ORDERED: Zofran 4 MG/2 ML VIAL ONE (20:01)
[2023-01-07] MEDS ORDERED: Sodium Chloride 0.9% 1000 ML 1,000 ML ONE (20:01)
[2023-01-07 20:05] LABS: Absolute Neutrophil Ct (ANC) 5.02 x10^3/uL (1.4-6.9); BASOPHIL % 0.3 % (0.0-0.4); Basophil (Absolute #) 0.02 x10^3/uL (0-0.4); Eosinophil % 1.3 % (0.00-5.0); Eosinophil (Absolute #) 0.09 x10^3/uL (0-0.5); Hematocrit 40.7 % (35-47); Hemoglobin 13.3 g/dL (12.0-16.0); IMMATURE GRAN # 0.01 x10^3u/L (0.00-0.03); IMMATURE GRAN % 0.1 % (0.00-0.4); Lymphocytes % 20.3 % (24.0-44.0); Mean Cell Volume 93.6 fL (78-100); Mean Corpuscular Hemoglobin 30.6 pg (26-32); Mean Corpuscular Hgb Concent. 32.7 g/dL (32-36); Mean Platelet Volume 10.5 fL (7.5-11.0); Monocyte (Absolute #) 0.36 x10^3/uL (0.0-1.3); Monocytes % 5.2 % (0.0-12.0); Neutrophil % 72.8 % (36.0-66.0); Platelet Count 232 x10^3/uL (150-450); Red Blood Count 4.35 x10^6/uL (4.1-5.4); Red Cell Distribution Width 14.8 % (11.5-14.0); White Blood Count 6.9 x10^3/uL (4.0-10.5)
[2023-01-07 20:19] LABS: ALKALINE PHOSPHATASE 82 U/L (38-126); ANION GAP 11.2 MEQ/L (5-15); BLOOD UREA NITROGEN 15 mg/dL (7-17); CHLORIDE 107 mmol/L (98-107); Calcium 9.5 mg/dL (8.4-10.2); Carbon Dioxide 25 mmol/L (22-30); Creatinine 1 0.89 mg/dL (0.52-1.04); EST GLOMERULAR FILTRATION RATE > 60.0 ML/MIN; Glucose 112 mg/dL (74-106); Potassium 4.4 mmol/L (3.5-5.1); SGOT/AST 25 U/L (14-36); SGPT/ALT 26 U/L (0-35); SODIUM 139 mmol/L (137-145); Total Protein 7.1 g/dL (6.3-8.2)
[2023-01-07] MEDS ORDERED: TRANDATE 20 MG/4 ML SYRINGE IV ONE ×2 (20:19→20:53)
[2023-01-07] MEDS ORDERED: Ativan 2 MG/1 ML VIAL IV ONE (20:57)
[2023-01-07 22:25] VITALS: O2SAT 95
[2023-01-07 22:43] LABS: Amphetamine,Urine NEGATIVE (NEGATIVE); Barbiturate,Urine NEGATIVE (NEGATIVE); Benzodiazepine,Urine NEGATIVE (NEGATIVE); Cocaine,Urine NEGATIVE (NEGATIVE); Methadone,Urine NEGATIVE (NEGATIVE); PCP,Urine NEGATIVE (NEGATIVE); THC,Urine NEGATIVE (NEGATIVE)
[2023-01-07 22:47] LABS: Opiate,Urine NEGATIVE (NEGATIVE)
[2023-01-07 23:07] VITALS: BP 130/81; PULSE 73
--- NOTE | 2023-01-08 09:07 | XRAY ---
Indication: Right jaw and chest pain. Elevated d-dimer. Multiple contiguous axial images obtained through the chest using 100 cc Isovue 370 contrast and PE protocol. Comparison: CT chest without contrast July 07, 2021 Adequate opacification of the pulmonary arteries. No pulmonary embolus. Heart not enlarged. Aorta is normal in course and caliber. No pathologic mediastinal/hilar lymphadenopathy. Lungs demonstrates stable 1 cm benign posterior right lower lobe noncalcified nodule. No new pulmonary mass/nodule, infiltrate, or effusion. Bony thorax intact again with minimal degenerative changes throughout the spine. Limited upper abdomen again demonstrates fatty liver and cholecystectomy clips. Impression: 1. Negative pulmonary embolus. No new/acute cardiopulmonary abnormalities. 2. Again chronic findings including benign right lower lobe noncalcified nodule, degenerative spondylosis, and fatty liver.
--- NOTE | 2023-01-08 09:14 | XRAY ---
Indication: Chest pain. Comparison: December 28, 2022 PA/lateral chest unchanged again demonstrating right lower lung hazy airspace disease without consolidation/large effusion. Remaining heart, left lung, and bony thorax unremarkable.
== END 2023-01-07 23:43 | disposition left against medical advice (07) ==
LOC: ED 19:31
DX: I16.0 Hypertensive urgency (principal); I10 Essential (primary) hypertension; R79.1 Abnormal coagulation profile; R07.9 Chest pain, unspecified; R06.02 Shortness of breath; Z79.899 Other long term (current) drug therapy; Z72.0 Tobacco use
CPT/HCPCS: 36000; 36415; 71046; 71260; 80053; 80307; 83880; 84484; 85025; 85379; 93005; 93041; 96374; 96375; 99284; J2405; A9270-GY

== ENCOUNTER 2023-04-15 04:17 | Emergency (ER) | payer MEDICARE ==
[2023-04-15] MEDS ORDERED: Sodium Chloride 0.9% 1000 ML 1,000 ML IV SCH (05:15)
--- NOTE | 2023-04-15 05:23 | ERPHSYRPT ---
- History of Present Illness Source: patient Exam Limitations: no limitations Patient Subjective Stated Complaint: Pt reports that approx 0000 this morning she started experiencing a "squeezing" feeling in the middle of her abdomen that was not hurting just squeezing and giving her a "weird" feeling. Pt reports denies any pain. Denies any nausea/vomiting. Reports she had a seizure yesterday which she has a history of and since then has been "jittery and anxious". Triage Nursing Assessment: Pt alert and oriented x3. No apparent respiratory distress. Skin w/p/d. Arrived via ambulance, transfered to cot per self. Pt has rapid speech, stuttering, frequently moving around. Abdomen soft/round/per pt tender in RLQ/LUQ/LLQ. Active bowel sounds in all four quads. Severity: mild Hx Tetanus, Diphtheria Vaccination/Date Given: No (unknown) Hx Influenza Vaccination/Date Given: No Hx Pneumococcal Vaccination/Date Given: No <COOPER LUCAS - Last Filed: 04/15/23 07:03> <BLANE PHILIPPE - Last Filed: 04/15/23 08:06> - History of Present Illness Time Seen by Provider: 04/15/23 04:25 Physician History: This is a 48-year-old female presents to the with concerns of having abdominal distention, cramping and diarrhea. Patient reports she has had diarrhea for the past 3 months. Reports having 4-5 episodes yesterday. Patient reports that she has noted that her epigastric and left upper quadrant becomes distended and cramps intermittently. Denies any recent illnesses. Denies having a fever, chills or nausea or vomiting. Reports having history of seizures reports having a seizure yesterday, denies missing any dosage of her seizure medication. Patient denies any other concerns. (COOPER LUCAS) Allergies/Adverse Reactions: carbamazepine [From Tegretol] Allergy (Verified 04/15/23 04:27) phenytoin [From Dilantin] Allergy (Verified 04/15/23 04:27) Home Medications: Sertraline HCl 100 mg PO DAILY 07/11/20 [History] Folic Acid 1 mg [Folate 1 mg] 1 tab PO DAILY 12/28/22 [History] Levothyroxine Sodium 1 cap PO DAILY 12/28/22 [History] lamoTRIgine [Lamotrigine] 1 tab PO BID 12/28/22 [History] lisinopriL [Lisinopril] 3 tab PO DAILY 12/28/22 [History] Aspirin EC 81 mg [Ecotrin 81 mg] 1 tab PO DAILY 04/15/23 [History] Cenobamate [Xcopri] 100 mg PO DAILY 04/15/23 [History] HydrALAzine HCL 25 MG TAB [Apresoline 25 MG TABLET] 2 tab PO TID 04/15/23 [History] Nitroglycerin 0.4 mg Tablet [Nitrostat 0.4 MG Tablet] 1 tab SL Q12H PRN PRN 04/15/23 [History] Travel Risk - International Travel Have you traveled outside of the country in past 3 weeks: No - Coronavirus Screening Are you exhibiting any of the following symptoms?: No Close contact with a COVID-19 positive Pt in past 14-21 Days: No - Vaccine Status Have you recieved a Covid-19 vaccination: Yes 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 <COOPER LUCAS - Last Filed: 04/15/23 07:03> - Review of Systems Constitutional: No Fever, No Chills Eyes: No Symptoms Ears, Nose, & Throat: No Symptoms Respiratory: No Cough, No Dyspnea Cardiac: No Chest Pain, No Edema, No Syncope Abdominal/Gastrointestinal: Abdominal Pain (Cramping and distention), Diarrhea, No Nausea, No Vomiting Genitourinary Symptoms: No Dysuria Musculoskeletal: No Back Pain, No Neck Pain Skin: No Rash Neurological: No Dizziness, No Focal Weakness, No Sensory Changes Psychological: No Symptoms Endocrine: No Symptoms All Other Systems: Reviewed and Negative <COOPER LUCAS - Last Filed: 04/15/23 07:03> - Past Medical History Pertinent Past Medical History: Yes Neurological History: Seizures Cardiac History: Hypertension Endocrine Medical History: Hypothyroidism Musculoskeletal History: Arthritis Psycho-Social History: Anxiety, Bipolar, Depression - Past Surgical History Past Surgical History: Yes Genitourinary: Other Female Surgical History: Section, Tubal Ligation Other Surgical History: c-sections x3, lithotripsy - Social History Smoking Status: Current every day smoker How long have you smoked: 36 years Exposure to second hand smoke: Yes Drug Use: none Patient Lives Alone: No <COOPER LUCAS - Last Filed: 04/15/23 07:03> - Physical Exam General Appearance: no apparent distress Eye Exam: PERRL/EOMI Ears, Nose, Throat Exam: normal ENT inspection Neck Exam: normal inspection Respiratory Exam: normal breath sounds, lungs clear Cardiovascular Exam: regular rate/rhythm, normal heart sounds Gastrointestinal/Abdomen Exam: soft, normal bowel sounds, tenderness (No tenderness to palpation in any quadrants.), No distention, No mass, No guarding Back Exam: normal inspection Extremity Exam: normal inspection, normal range of motion Neurologic Exam: alert, oriented x 3, cooperative Skin Exam: normal color, warm, dry SpO2 Interpretation: normal SpO2: 97 O2 Delivery: Room Air <ANNIE LUCASN - Last Filed: 04/15/23 07:03> - Nursing Vital Signs Nursing Vital Signs: Initial Vital Signs Temperature 97.8 F 04/15/23 04:23 Pulse Rate 100 H 04/15/23 04:23 Respiratory Rate 22 04/15/23 04:23 Blood Pressure 184/114 04/15/23 04:23 O2 Sat by Pulse Oximetry 97 04/15/23 04:23 Pain Scale Pain Intensity 0 Ordered Tests: Active Orders 24 hr Category Date Time Status ABDOMEN AND PELVIS W/0 CONTRAS [CT] Stat Exams 04/15/23 05:14 Completed BMP Stat Lab 04/15/23 05:24 Completed CBC W DIFF Stat Lab 04/15/23 05:24 Completed TROPONIN Q4H Lab 04/15/23 05:24 Completed TROPONIN Q4H Lab 04/15/23 09:15 Ordered TROPONIN Q4H Lab 04/15/23 13:15 Ordered TROPONIN Q4H Lab 04/15/23 17:15 Ordered TROPONIN Q4H Lab 04/15/23 21:15 Ordered UA W/RFX UR CULTURE Stat Lab 04/15/23 06:42 Completed Medication Summary Generic Name Dose Route Start Last Admin Trade Name Freq PRN Reason Stop Dose Admin Sodium Chloride 1,000 mls @ 250 mls/hr 04/15/23 05:15 04/15/23 06:08 Sodium Chloride 0.9% 1000 Ml IV 05/15/23 05:14 250 mls/hr .Q4H PB Administration Discontinued Medications Generic Name Dose Route Start Last Admin Trade Name Panchito PRN Reason Stop Dose Admin Methylprednisolone Sodium 0 mg 04/15/23 07:57 Succinate 125 mg/ Sterile IV 04/15/23 07:58 Water 2 ml STAT ONE Lab/Rad Data: Laboratory Result Diagrams 04/15/23 05:24 04/15/23 05:24 Laboratory Results 04/15/23 04/15/23 04/15/23 Range/Units 06:42 05:24 05:24 WBC (4.0-10.5) x10^3/uL RBC (4.1-5.4) x10^6/uL Hgb (12.0-16.0) g/dL Hct (35-47) % MCV (78-100) fL MCH (26-32) pg MCHC (32-36) g/dL RDW (11.5-14.0) % Plt Count (150-450) x10^3/uL MPV (7.5-11.0) fL Gran % (36.0-66.0) % Immature Gran % (Auto) (0.00-0.4) % Nucleat RBC Rel Count (0.00-0.1) % Eos # (Auto) (0-0.5) x10^3/uL Immature Gran # (Auto) (0.00-0.03) x10^3u/L Absolute Lymphs (auto) (1.0-4.6) x10^3/uL Absolute Monos (auto) (0.0-1.3) x10^3/uL Absolute Nucleated RBC (0.00-0.01) x10^3u/L Lymphocytes % (24.0-44.0) % Monocytes % (0.0-12.0) % Eosinophils % (0.00-5.0) % Basophils % (0.0-0.4) % Absolute Granulocytes (1.4-6.9) x10^3/uL Basophils # (0-0.4) x10^3/uL Sodium 137 (137-145) mmol/L Potassium 5.0 (3.5-5.1) mmol/L Chloride 104 (98-107) mmol/L Carbon Dioxide 25 (22-30) mmol/L Anion Gap 12.9 (5-15) MEQ/L BUN 22 H (7-17) mg/dL Creatinine 0.97 (0.52-1.04) mg/dL Estimated GFR > 60.0 ML/MIN Glucose 103 (74-106) mg/dL Calcium 9.7 (8.4-10.2) mg/dL Troponin I < 0.012 (0.000-0.034) ng/mL Urine Color Yellow (Yellow) Urine Appearance Clear (Clear) Urine pH 5.5 (4.6-8.0) Ur Specific [place] 1.015 (1.005-1.030) Urine Protein Trace A (Negative) Urine Glucose (UA) Negative (Negative) mg/dL Urine Ketones Negative (Negative) Urine Blood Negative (Negative) Urine Nitrite Negative (Negative) Urine Bilirubin Negative (Negative) Urine Urobilinogen 1.0 A (0.2) mg/dL Ur Leukocyte Esterase Negative (Negative) U Hyaline Cast (Auto) 3-5 A (0-2) /LPF Urine Microscopic RBC 0-2 (0-5) /HPF Urine Microscopic WBC 0-2 (0-5) /HPF Ur Epithelial Cells Rare (None Seen) /HPF Urine Bacteria None Seen (None Seen) /HPF Urine Culture Reflexed NO (NO) Slides for Path Review 04/15/23 Range/Units 05:24 WBC 6.7 (4.0-10.5) x10^3/uL RBC 4.21 (4.1-5.4) x10^6/uL Hgb 12.9 (12.0-16.0) g/dL Hct 40.6 (35-47) % MCV 96.4 (78-100) fL MCH 30.6 (26-32) pg MCHC 31.8 L (32-36) g/dL RDW 15.6 H (11.5-14.0) % Plt Count 161 (150-450) x10^3/uL MPV 11.2 H (7.5-11.0) fL Gran % 61.7 (36.0-66.0) % Immature Gran % (Auto) 0.4 (0.00-0.4) % Nucleat RBC Rel Count 0.0 (0.00-0.1) % Eos # (Auto) 0.09 (0-0.5) x10^3/uL Immature Gran # (Auto) 0.03 (0.00-0.03) x10^3u/L Absolute Lymphs (auto) 1.84 (1.0-4.6) x10^3/uL Absolute Monos (auto) 0.62 (0.0-1.3) x10^3/uL Absolute Nucleated RBC 0.00 (0.00-0.01) x10^3u/L Lymphocytes % 27.3 (24.0-44.0) % Monocytes % 9.2 (0.0-12.0) % Eosinophils % 1.3 (0.00-5.0) % Basophils % 0.1 (0.0-0.4) % Absolute Granulocytes 4.14 (1.4-6.9) x10^3/uL Basophils # 0.01 (0-0.4) x10^3/uL Sodium (137-145) mmol/L Potassium (3.5-5.1) mmol/L Chloride (98-107) mmol/L Carbon Dioxide (22-30) mmol/L Anion Gap (5-15) MEQ/L BUN (7-17) mg/dL Creatinine (0.52-1.04) mg/dL Estimated GFR ML/MIN Glucose (74-106) mg/dL Calcium (8.4-10.2) mg/dL Troponin I (0.000-0.034) ng/mL Urine Color (Yellow) Urine Appearance (Clear) Urine pH (4.6-8.0) Ur Specific [place] (1.005-1.030) Urine Protein (Negative) Urine Glucose (UA) (Negative) mg/dL Urine Ketones (Negative) Urine Blood (Negative) Urine Nitrite (Negative) Urine Bilirubin (Negative) Urine Urobilinogen (0.2) mg/dL Ur Leukocyte Esterase (Negative) U Hyaline Cast (Auto) (0-2) /LPF Urine Microscopic RBC (0-5) /HPF Urine Microscopic WBC (0-5) /HPF Ur Epithelial Cells (None Seen) /HPF Urine Bacteria (None Seen) /HPF Urine Culture Reflexed (NO) Slides for Path Review YES - Progress Progress: improved <COOPER LUCAS - Last Filed: 04/15/23 07:03> - Progress Counseled pt/family regarding: lab results, diagnosis, need for follow-up, rad results <BLANE PHILIPPE - Last Filed: 04/15/23 08:06> - Progress Progress Note: 04/15/23 06:56 48-year-old female came in with abdominal distention and diarrhea. 04/15/23 06:57 CBC and CMP are within normal range. 04/15/23 06:58 Troponin is negative. We will transfer care to Dr. Philippe. He will make the final decisions and treatment. (COOPER LUCAS) 04/15/23 07:59 This patient's medical issue is 1 of moderate complexity. The level complexity and the work-up performed is based on review of the patient's past medical history, review of the patient's medication list, review of the patient's drug allergy list and review of the history of present illness and physical findings on examination. Work-up includes a CBC, CMP, amylase, lipase, CT scan of the abdomen pelvis and urinalysis. The CT scan of the abdomen pelvis without contrast was interpreted by the radiologist and I reviewed the impression. There is no evidence of any acute intra-abdominal or intrapelvic abnormalities. The patient does have a history of Crohn's disease and chronically has di arrhea. We will provide her a single dose of Solu-Medrol steroids intravenously. Patient received Protonix 40 mg intravenously, 4 mg of Zofran ODT and Dilaudid 1 mg intravenously. We are awaiting the results of the urinalysis. 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 (BLANE PHILIPPE) Medical Desision Making - Diagnostic Testing Radiological Interpretation: Reviewed by me, Teleradiologist Report - Risk of complications The pt has a mod risk of morbidity or mortality based on: Need for prescription drug management <BLANE PHILIPPE - Last Filed: 04/15/23 08:06> - Departure Departure Disposition: Home Critical Care Time: No <COOPER LUCAS - Last Filed: 04/15/23 07:03> <BLANE PHILIPPE - Last Filed: 04/15/23 08:06> - Departure Clinical Impression: Abdominal pain Condition: Stable Referrals: RODGER VALLADARES [Primary Care Provider] - Follow up/PCP as directed Additional Instructions: Take all your medication as prescribed. Call your primary care physician and agastroenterologist if indicated today to make arrangements for follow-up appointment and for further evaluation and management. Prescriptions: Ondansetron ODT 4 MG [Zofran Odt 4 mg] 4 mg PO Q6H PRN PRN #10 tablet PRN Reason: Vomiting
[2023-04-15 05:31] LABS: Absolute Neutrophil Ct (ANC) 4.14 x10^3/uL (1.4-6.9); BASOPHIL % 0.1 % (0.0-0.4); Basophil (Absolute #) 0.01 x10^3/uL (0-0.4); Eosinophil % 1.3 % (0.00-5.0); Eosinophil (Absolute #) 0.09 x10^3/uL (0-0.5); Hematocrit 40.6 % (35-47); Hemoglobin 12.9 g/dL (12.0-16.0); IMMATURE GRAN # 0.03 x10^3u/L (0.00-0.03); IMMATURE GRAN % 0.4 % (0.00-0.4); Lymphocyte (Absolute #) 1.84 x10^3/uL (1.0-4.6); Lymphocytes % 27.3 % (24.0-44.0); Mean Cell Volume 96.4 fL (78-100); Mean Corpuscular Hemoglobin 30.6 pg (26-32); Mean Corpuscular Hgb Concent. 31.8 g/dL (32-36); Mean Platelet Volume 11.2 fL (7.5-11.0); Monocyte (Absolute #) 0.62 x10^3/uL (0.0-1.3); Monocytes % 9.2 % (0.0-12.0); Neutrophil % 61.7 % (36.0-66.0); Platelet Count 161 x10^3/uL (150-450); Red Blood Count 4.21 x10^6/uL (4.1-5.4); Red Cell Distribution Width 15.6 % (11.5-14.0); White Blood Count 6.7 x10^3/uL (4.0-10.5)
[2023-04-15 05:59] LABS: ANION GAP 12.9 MEQ/L (5-15); BLOOD UREA NITROGEN 22 mg/dL (7-17); CHLORIDE 104 mmol/L (98-107); Calcium 9.7 mg/dL (8.4-10.2); Carbon Dioxide 25 mmol/L (22-30); Creatinine 1 0.97 mg/dL (0.52-1.04); EST GLOMERULAR FILTRATION RATE > 60.0 ML/MIN; Glucose 103 mg/dL (74-106); SODIUM 137 mmol/L (137-145)
[2023-04-15] MEDS ORDERED: Sodium Chloride 0.9% 1000 ML 1,000 ML ONE (06:06)
[2023-04-15 07:05] LABS: Appearance Clear (Clear); Bilirubin Negative (Negative); Blood Negative (Negative); Glucose, Urine Negative (Negative); Ketones Negative (Negative); Leukocyte Esterase Negative (Negative); Nitrite Negative (Negative); Ph 5.5 (4.6-8.0); Protein,Urine Dip Trace (Negative); Specific Gravity 1.015 (1.005-1.030)
[2023-04-15 07:08] LABS: Slide Review 1 YES
[2023-04-15 07:18] LABS: Bacteria None Seen /HPF (None Seen); Epithelial Cells Rare /HPF (None Seen); RBC 0-2 /HPF (0-5); WBC 0-2 /HPF (0-5)
[2023-04-15 07:23] LABS: ADD URINE CULTURE? NO (NO)
--- NOTE | 2023-04-15 07:44 | XRAY ---
CLINICAL HISTORY:Abdominal pain, history of tubal ligation, and renal stones with lithotripsy; COMPARISON:01/20/2022; TECHNIQUES:Axial sections of CT abdomen and pelvis were obtained without administration of intravenous contrast. Reformatted coronal and sagittal images were acquired; FINDINGS: Previously seen left-sided ureteric calculus is not visualized with interval resolution of left-sided hydronephrosis and hydroureter. Multiple non-obstructing bilateral renal calculi. The largest calculus/clustered calculi in the upper pole of the right kidney collectively measure approximately 9 x 3 mm on sagittal images. The left kidney is relatively small in size with areas of renal scarring. The left kidney measures 8 mm in craniocaudal dimension. The largest calculus in the left kidney is seen in the lower pole, measuring approximately 3.9 mm on sagittal images. The right kidney is normal in size. It is measuring approximately 12 mm in craniocaudal dimension. The urinary bladder is normally distended. No definite evidence of intravesical abnormality. Uterus and bilateral adnexa appear unremarkable. A small ovoid soft tissue density measuring approximately 7.4 x 6.2 mm is identified adjacent to the right lateral wall of the urinary bladder, and may represent a lymph node. This appears unchanged from prior CT examination. Few small phleboliths within the pelvis. The liver is normal in size and attenuation. No discrete focal hepatic lesion is seen. No definite evidence of intrahepatic biliary dilatation. Status postcholecystectomy. The spleen, pancreas, and bilateral adrenal glands appear unremarkable. The stomach is partially distended. There is a suggestion of a small hiatal hernia. Visualized large and small bowel loops appear grossly unremarkable. The appendix is separately visualized. No definite evidence of acute appendicitis. No ascites or pneumoperitoneum. Mild atherosclerotic changes in the abdominal aorta and its branches. Heart is normal in size. No pericardial effusion. Subpleural soft tissue nodule in the posterior segment of the right lower lobe measuring 6.8 x 5.6 mm in size. This appears unchanged from prior CT examination. Degenerative changes in the visualized spine with multilevel osteophytes and endplate changes. Mild grade 1 retrolisthesis of L3 over L4. Reduced L4-L5 and L5-S1 disc spaces with vacuum phenomena. IMPRESSION: Previously seen left-sided ureteric calculus is not visualized with interval resolution of left-sided hydronephrosis and hydroureter suggesting excretion of the left obstructing calculus. No other significant interval change from prior CT examination. Redemonstration of multiple bilateral renal calculi without evidence of obstructive uropathy in the current examination. Relatively small-sized left kidney with scarring, as seen on prior CT. Subpleural soft tissue nodule in the posterior segment of the right lower lobe measuring 6.8 x 5.6 mm in size. This appears unchanged from prior CT examination. Follow-up is advised. Electronically Signed by: Man Hernandez MD. (04/15/2023 06:22:38 GENERAL WORKER)
[2023-04-15] MEDS ORDERED: solu-MEDROL 125 MG, Sterile H2O 10 ml 2 ML IV ONE ×2 (07:57)
[2023-04-15 08:10] VITALS: O2SAT 96
[2023-04-15 08:34] VITALS: BP 117/72; PULSE 83
== END 2023-04-15 09:02 | disposition home or self-care (01) ==
LOC: ED 04:17
DX: R10.12 Left upper quadrant pain (principal); R10.13 Epigastric pain; R19.7 Diarrhea, unspecified; I10 Essential (primary) hypertension; Z79.899 Other long term (current) drug therapy; Z72.0 Tobacco use
CPT/HCPCS: 36000; 36415; 74176; 80048; 81001; 84484; 85025; 93005; 96360; 96361; 99284

== ENCOUNTER 2023-06-06 06:43 | Day surgery (SDC) | payer MEDICARE ==
--- NOTE | 2023-06-04 14:59 | HP ---
DATE: 06/06/2023 HISTORY OF PRESENT ILLNESS: Patient is a 48 year-old female who presents with complaints of a violation of the scalp. She has a tender lesion of her scalp on the right side. She is also complaining of a right neck mole. Patient would like to have these removed. PAST MEDICAL HISTORY: Hypertension, thyroid. CURRENT MEDICATIONS: Hydralazine, lisinopril, aspirin, sertraline, folic acid, levothyroxine, lamotrigine, nitro. ALLERGIES: DILANTIN, TEGRETOL. PAST SURGERIES: , knee surgery. SOCIAL HISTORY: Current smoker. FAMILY HISTORY: Heart disease, chronic obstructive pulmonary disease, diabetes. REVIEW OF SYSTEMS: CONSTITUTIONAL: Denies fever or chills. CHEST: Denies shortness of breath. CVS: Denies chest pain. ABDOMEN: Denies abdominal pain. PHYSICAL EXAMINATION: GENERAL: No acute distress. CHEST: Nonlabored. No shortness of breath. CVS: Regular rate and rhythm. ABDOMEN: Soft. SCALP: Shows a 7 mm right scalp mole/lesion and a 7 mm right scalp mole and a 5 mm mole on the right neck. IMPRESSION: 1. SCALP LESION X 2. 2. RIGHT NECK MOLE X 1. PLAN: Outpatient excision of scalp lesion X 2 and neck mole. This report was dictated for Dr. Arellano by Yaa Albarado NP.
[2023-06-06] MEDS ORDERED: Sensorcaine 0.25% 10 ML IJ ONE (06:44)
[2023-06-06 07:30] LABS: HCG URINE TEST NEGATIVE (NEGATIVE)
[2023-06-06] MEDS ORDERED: Lactated Ringers 1,000 ML IV SCH (07:30)
[2023-06-06] MEDS ORDERED: Lactated Ringers 1,000 ML IV ONE (07:37)
[2023-06-06 08:06] LABS: ALBUMIN 4.1 g/dL (3.5-5.0); ALKALINE PHOSPHATASE 98 U/L (38-126); BLOOD UREA NITROGEN 17 mg/dL (7-17); CHLORIDE 107 mmol/L (98-107); Calcium 9.3 mg/dL (8.4-10.2); Carbon Dioxide 27 mmol/L (22-30); Creatinine 1 0.74 mg/dL (0.52-1.04); EST GLOMERULAR FILTRATION RATE > 60.0 ML/MIN; Glucose 105 mg/dL (74-106); SGOT/AST 33 U/L (14-36); SGPT/ALT 32 U/L (0-35); SODIUM 140 mmol/L (137-145); Total Protein 7.2 g/dL (6.3-8.2)
[2023-06-06 08:07] LABS: Potassium 4.9 mmol/L (3.5-5.1)
[2023-06-06 08:09] VITALS: RESP 18
[2023-06-06] MEDS ORDERED: SODIUM CHLORIDE 0.9% IV ONE (08:45)
[2023-06-06] MEDS ORDERED: KEFZOL IV ONE (08:45)
[2023-06-06] MEDS ORDERED: KEFZOL 1 GM** 3 G in Sodium Chloride 0.9% 50 ML 50 ML IV ONE (08:45)
[2023-06-06] MEDS ORDERED: XYLOCAINE 1%/Epi 1:100000 MDV 20 ML ONE (09:26)
[2023-06-06] MEDS ORDERED: Sensorcaine 0.25% 10 ML ONE (09:26)
[2023-06-06] MEDS ORDERED: SUBLIMAZE 100 MCG/2 ML ONE ×2 (09:43→10:39)
[2023-06-06] MEDS ORDERED: DIPRIVAN 200 MG/20 ML IV ONE (09:43)
[2023-06-06] MEDS ORDERED: Versed 2 MG/2 ML Injection ONE (09:43)
[2023-06-06] MEDS ORDERED: Zemuron 100 MG/10 ML ONE (10:01)
[2023-06-06] MEDS ORDERED: Quelicin Fliptop 200 MG/10 ML ONE (10:01)
[2023-06-06] MEDS ORDERED: PHENYLEPHRINE HCL ONE (10:12)
[2023-06-06] MEDS ORDERED: BACIGUENT 30 GM ONE (10:12)
[2023-06-06] MEDS ORDERED: BRIDION 200MG/2ML IV ONE (10:13)
[2023-06-06] MEDS ORDERED: DUONEB 0.5-3 MG/3 ml Neb IH ONE (10:53)
--- NOTE | 2023-06-06 11:24 | OP ---
SURGERY DATE/TIME: 06/06/2023 1004 PREOPERATIVE DIAGNOSIS: Three lesions left side upper neck and scalp. POSTOPERATIVE DIAGNOSIS: Three lesions left side upper neck and scalp. PROCEDURES: 1) Excision of 1.5 cm superior scalp lesion with closure. 2) Excision of 1.5 cm inferior scalp lesion with closure. 3) Excision of 1 cm neck lesion with no closure. SURGEON: Estuardo Arellano M.D. ANESTHESIA: General. COMPLICATIONS: None. CONDITION: Stable. INDICATION: A 48-year-old with three pigmented lesions right neck getting irritated. One of these is somewhat pedunculated on the neck. DESCRIPTION OF PROCEDURE: She is taken to surgery. Routine prep and drape. The neck lesion was excised and cauterized. The two scalp lesions were excised and closed. Hemostasis satisfactory. Closed with 3-0 Prolene. The patient tolerated the procedure satisfactorily. Sterile dressing and sterile ointment applied.
[2023-06-06 11:47] VITALS: O2SAT 92
[2023-06-06 12:19] VITALS: BP 158/99; PULSE 83; TEMP 98.5
== END 2023-06-06 12:20 | disposition home or self-care (01) ==
LOC: SDC 06:43
PROVIDERS: ATTEND Surgery
DX: D23.4 Other benign neoplasm of skin of scalp and neck (principal)
CPT/HCPCS: 80053; 81025; 93005; 94640; J0330; J0690; J2250; J2370; J2704; J3010; A9270-GY